=== PATIENT | female | born 1955 | race Caucasian/White ===

== ENCOUNTER 2023-11-30 07:50 | Outpatient (REF) | payer MEDICARE, BC, SELFPAY ==
[2023-11-30] VITALS (15 sets, daily range): BP systolic 62–167; BP diastolic 58–82
[2023-11-30 09:15] LABS: % Basophils 1.2 % (0-2); % Eosinophils 1.9 % (0-6); % Immature Granulocytes 0.5 % (0-0.5); % Lymphocytes 16.7 % (20.5-51.1); % Monocytes 10.7 % (1.7-9.3); Absolute Basophils 0.1 10^3/uL (0-0.2); Absolute Eosinophils 0.1 10^3/uL (0-0.7); Absolute Lymphocytes 0.7 10^3/uL (1.2-3.4); Absolute Monocytes 0.4 10^3/uL (0.1-0.6); Absolute Neutrophils 2.9 10^3/uL (1.4-6.5); Hematocrit 30.7 % (37.0-47.0); Hemoglobin 10.2 g/dL (12.0-16.0); Mean Corp Hgb Conc. 33.2 g/dL (33.0-37.0); Mean Corpuscular Volume 96.2 fL (81.0-99.0); Mean Platelet Volume 9.2 fL (7.4-10.4); Nucleated Red Blood Cells % 0 %; Platelet Count 197 10^3/uL (130-400); Red Blood Cell Count 3.19 10^6/uL (4.20-5.40); Red Cell Dist. Width 11.9 % (11.5-14.5); White Blood Cell Count 4.1 10^3/uL (4.8-10.8)
[2023-11-30 09:27] LABS: INR 1.07; PT 13.9 Sec (11.4-14.6)
[2023-11-30 09:36] LABS: Blood Urea Nitrogen 26 mg/dl (7-17); Calcium 9.7 mg/dl (8.4-10.2); Carbon Dioxide 16 mmol/L (22-30); Chloride 107 mmol/L (98-107); Glucose 81 mg/dl (70-99); Sodium 132 mmol/L (135-145); eGFR 54.39
[2023-11-30 14:25] LABS: Hematocrit 31.5 % (37.0-47.0); Hemoglobin 10.8 g/dL (12.0-16.0)
== END 2023-11-30 16:10 | disposition home or self-care (01) ==
LOC: RADI 07:50
PROVIDERS: Radiology Vascular & Interventional Radiology; ATTENDING PHYSICIAN Student in an Organized Health Care Education/Training Program; FAMILY PHYSICIAN Family Medicine
DX: I12.9 Hypertensive chronic kidney disease with stage 1 through stage 4 chronic kidney disease, or unspecified chronic kidney disease (principal); N18.9 Chronic kidney disease, unspecified; M32.9 Systemic lupus erythematosus, unspecified; D68.8 Other specified coagulation defects; R80.9 Proteinuria, unspecified; I48.91 Unspecified atrial fibrillation; Z79.01 Long term (current) use of anticoagulants
CPT/HCPCS: 36415; 50200; 76942; 80048; 85014; 85018; 85025; 85610; 99152; 99153

== ENCOUNTER 2023-12-29 03:26 | Inpatient (IN) | payer MEDICARE, BC, SELFPAY ==
[2023-12-28 22:57] VITALS: BMI 20.8
[2023-12-28 23:01] VITALS: BP 160/80
[2023-12-28 23:30] VITALS: BP 121/61
[2023-12-28 23:33] LABS: % Eosinophils 1.3 % (0-6); % Immature Granulocytes 0.3 % (0-0.5); % Lymphocytes 18.3 % (20.5-51.1); % Monocytes 16.8 % (1.7-9.3); % Neutrophils 62.3 % (42.2-75.2); Absolute Eosinophils 0.1 10^3/uL (0-0.7); Absolute Lymphocytes 0.7 10^3/uL (1.2-3.4); Absolute Monocytes 0.6 10^3/uL (0.1-0.6); Absolute Neutrophils 2.4 10^3/uL (1.4-6.5); Hematocrit 30.1 % (37.0-47.0); Hemoglobin 10.3 g/dL (12.0-16.0); Mean Corp Hgb Conc. 34.2 g/dL (33.0-37.0); Mean Corpuscular Volume 93.5 fL (81.0-99.0); Mean Platelet Volume 9.1 fL (7.4-10.4); Nucleated Red Blood Cells % 0 %; Platelet Count 193 10^3/uL (130-400); Red Blood Cell Count 3.22 10^6/uL (4.20-5.40); Red Cell Dist. Width 12.4 % (11.5-14.5); White Blood Cell Count 3.8 10^3/uL (4.8-10.8)
[2023-12-29] VITALS (15 sets, daily range): BP systolic 99–164; BP diastolic 48–98; PULSE 62–83; BMI 21.5
--- NOTE | 2023-12-29 00:09 | ED.GENMED ---
History of Present Illness
<SHAYNA Hubbard - Last Filed: 12/29/23 00:34>
General
Chief Complaint: Rectal Bleeding
Source: patient
Exam Limitations: none
Time Seen by Provider: 12/28/23 23:41
Travel History
Have you had any contact with someone who has COVID-19?: No
Do you have any symptoms of coronavirus? Fever > 100 degrees, chills, cough, shortness of breath, sore throat, loss of taste or smell, muscle aches, or headache?: No
History of Present Illness
History of Present Illness:
This is a 68 YO F with a PMH of internal hemorrhoids, colostomy, colostomy reversal 2017 presenting here today for rectal bleeding x 2.5 hours. Pt states she felt the bleed at around 9:40 p.m. She describes the blood as bright red. She states she is
not in any pain. Denies CP, SB, N, V, and diarrhea. Denies abdominal pain. Denies fever or chills. Denies dysuria. Pt states this happened about 1 year ago due to her internal hemorrhoids. She states she currently takes Metamucil. Pt reports she is
currently on Xarelto.
Past History
<SHAYNA Hubbard - Last Filed: 12/29/23 00:34>
Past History
ED Past Medical History: Arrthythmia (Atrial fibrillation), CHF, HTN, Hypercholesterolemia, Hypothyroidism, Other (Systemic lupus, rheumatoid arthritis, pneumonia, pleurisy, renal insufficiency, arthritis, impaired vision, diverticulitis with
sigmoid perforation 2017), Other (A. fib A flutter with history of ablation in January 2016) and Other (RA followed by Rhemuatology Dr. Charli David.)
ED Past Surgical History: Bowel resection (Sigmoid resection with colostomy formation August 2017 for perforated diverticulitis; colostomy reversal April 2018), Gynecological (Tubal ligation) and Orthopedic (L hip replacement 1996 Dr. Mcneal
Nicolas (Had staph infection of the left hip. Had been receiving steroid injections for pain). Right total knee replacement November 2016)
Social History
Tobacco: Non-smoker
Alcohol: Occasional
Drug: None
Personal:
Living: with family
Employment: Retired
Family History
Family History: Other (Noncontributory)
Review of Systems
<SHAYNA Hubbard - Last Filed: 12/29/23 00:34>
Review of Systems
Constitutional: Reports no symptoms
EENT: Reports no symptoms
Respiratory: Reports no symptoms
Cardiac: Reports no symptoms
ABD/GI: Reports bloody stools (Bright red x 2.5 hours (9:40 p.m.) +Hemoccult test )
: Reports no symptoms
Musculoskeletal: Reports no symptoms
Skin: Reports no symptoms
Neurological: Reports no symptoms
Endocrine: Reports no symptoms
Hematologic/Lymphatic: Reports no symptoms
Phy Exam
<SHAYNA Hubbard - Last Filed: 12/29/23 00:34>
Physical Exam
Physical Exam:
Bright red blood per rectum since 9:40 p.m. Normal S1, S2. Breath sounds are equal bilateral. Abdomen is soft and non-tender.
General Physical Exam
General Presentation: well appearing
General age: appears stated age
General Habitus: normal
General Mental: alert
General Hydration: appears well hydrated
Cardiovascular Exam
Cardiovascular Exam: regular rate/rhythm and no murmur
Heart Sounds: normal
Pulmonary Exam
Pulmonary Exam: lungs clear and no respiratory distress
Cough: no cough
Gastrointestinal Exam
Gastrointestinal Exam: normal bowel sounds, non tender and soft
Auscultation of Abdomen: normal
Course
<SHAYNA Hubbard - Last Filed: 12/29/23 00:34>
Orders/Labs/Results
Orders:
Orders
12/28/23 23:26
Type+Screen Urgent
Complete Blood Count/With Diff Urgent
Comprehensive Metabolic Panel Urgent
12/29/23 00:41
Pantoprazole [Protonix IV] 80 mg IV NOW STA
12/29/23 01:52
Admit/Transfer Patient As Directed
Co-Sign Provider:
Level of Care: Inpatient admission
Assign to:: Telemetry
Physician / Group: Amirah Hunt
Diagnosis: Hematochezia
Reason for Telemetry: Chest Pain syndromes
Date to Stop Telemetry: 12/31/23
Time to Stop Telemetry: 11:00
Reason for Hospitalization: Hematochezia
Expected length of stay greater than two midnights?: Yes
ELOS- Estimated Length of Stay in days: 3
I certify the patient meets the requirements for IP care: Yes
12/29/23 01:53
Code Status As Directed
Resuscitation Status: Full Code
12/31/23 11:00
DC Protocol for Telemetry ONCE
Abnormal Lab Results
12/28/23
23:26
WBC 3.8 L 10^3/uL
(4.8-10.8)
RBC 3.22 L 10^6/uL
(4.20-5.40)
Hgb 10.3 L g/dL
(12.0-16.0)
Hct 30.1 L %
(37.0-47.0)
MCH 32.0 H pg
(27.0-31.0)
Absolute Lymphs (auto) 0.7 L 10^3/uL
(1.2-3.4)
Lymphocytes % 18.3 L %
(20.5-51.1)
Monocytes % 16.8 H %
(1.7-9.3)
Sodium 131 L mmol/L
(135-145)
Carbon Dioxide 15 L mmol/L
(22-30)
BUN 33 H mg/dl
(7-17)
Creatinine 1.2 H mg/dL
(0.6-1.0)
Glucose 100 H mg/dl
(70-99)
12/28/23 23:26
12/28/23 23:26
Vital Signs
Initial and Last Documented VS:
Initial Vital Signs
Temp Pulse Resp BP Pulse Ox
97.8 F 73 20 160/80 98
12/28/23 23:01 12/28/23 23:01 12/28/23 23:01 12/28/23 23:01 12/28/23 23:01
Last Documented Vital Signs
Temp Pulse Resp BP Pulse Ox
97.8 F 65 18 132/63 98
12/28/23 23:01 12/29/23 01:30 12/29/23 01:15 12/29/23 01:30 12/29/23 01:30
<Mickey Ford, DO - Last Filed: 12/29/23 02:02>
Orders/Labs/Results
Orders:
Orders
12/28/23 23:26
Type+Screen Urgent
Complete Blood Count/With Diff Urgent
Comprehensive Metabolic Panel Urgent
12/29/23 00:41
Pantoprazole [Protonix IV] 80 mg IV NOW STA
12/29/23 01:52
Admit/Transfer Patient As Directed
Co-Sign Provider:
Level of Care: Inpatient admission
Assign to:: Telemetry
Physician / Group: Amirah Hunt
Diagnosis: Hematochezia
Reason for Telemetry: Chest Pain syndromes
Date to Stop Telemetry: 12/31/23
Time to Stop Telemetry: 11:00
Reason for Hospitalization: Hematochezia
Expected length of stay greater than two midnights?: Yes
ELOS- Estimated Length of Stay in days: 3
I certify the patient meets the requirements for IP care: Yes
12/29/23 01:53
Code Status As Directed
Resuscitation Status: Full Code
12/31/23 11:00
DC Protocol for Telemetry ONCE
Abnormal Lab Results
12/28/23
23:26
WBC 3.8 L 10^3/uL
(4.8-10.8)
RBC 3.22 L 10^6/uL
(4.20-5.40)
Hgb 10.3 L g/dL
(12.0-16.0)
Hct 30.1 L %
(37.0-47.0)
MCH 32.0 H pg
(27.0-31.0)
Absolute Lymphs (auto) 0.7 L 10^3/uL
(1.2-3.4)
Lymphocytes % 18.3 L %
(20.5-51.1)
Monocytes % 16.8 H %
(1.7-9.3)
Sodium 131 L mmol/L
(135-145)
Carbon Dioxide 15 L mmol/L
(22-30)
BUN 33 H mg/dl
(7-17)
Creatinine 1.2 H mg/dL
(0.6-1.0)
Glucose 100 H mg/dl
(70-99)
12/28/23 23:26
12/28/23 23:26
Vital Signs
Initial and Last Documented VS:
Initial Vital Signs
Temp Pulse Resp BP Pulse Ox
97.8 F 73 20 160/80 98
12/28/23 23:01 12/28/23 23:01 12/28/23 23:01 12/28/23 23:01 12/28/23 23:01
Last Documented Vital Signs
Temp Pulse Resp BP Pulse Ox
97.8 F 65 18 132/63 98
12/28/23 23:01 12/29/23 01:30 12/29/23 01:15 12/29/23 01:30 12/29/23 01:30
<SHAYNA Hubbard - Last Filed: 12/29/23 00:34>
MDM/Problems Addressed
Differential Diagnosis Includes:
Internal hemorrhoids, anal fissure, diverticulosis, diverticulitis, lower GI bleed
MDM/Problems Addressed:
Rectal bleed since 9:40 p.m.
<SHAYNA Hubbard - Last Filed: 12/29/23 00:34>
*Critical Care Note
Total Time (30-74mins, 75-104mins- exclusive of procedures): Not Applicable
ED Attending Note
<SHAYNA Hubbard - Last Filed: 12/29/23 00:34>
-
Portions of this chart may have been created with voice recognition software.� Occasional wrong word or��sound alike� substitutions may have occurred due to the inherent limitations of voice recognition software.
<Mickey Ford DO - Last Filed: 12/29/23 02:02>
ED Attending Note
Patient seen and examined by attending physician: Yes
I performed the substantive portion of visit, reviewed & personally made and approve the management plan that is documented in note by myself or COLEEN.: Yes
ED Attending Note:
This a pleasant 68-year-old female that presents with rectal bleeding that occurred approximate 2 hours prior to arrival. She states around 9:30 PM, she had bright red blood per rectum. She reports no pain. She states that this happened 1 year
ago and it was attributed to internal hemorrhoids. Patient does have irregular bowels and takes Metamucil. She is on Xarelto. Patient was seen in conjunction with the PA student. I have reviewed and agree with the history and treatment plan
presented. On my independent physical exam, patient is awake, alert, and oriented x3, minimal acute distress. Heart is regular rate and rhythm. Lungs are clear to auscultation bilaterally without wheezes rales or rhonchi present. Abdomen is soft
nondistended. Normal bowel sounds. Moves all 4 extremities
Discharge Plan
Departure
Patient Disposition: Admit
Date of Disposition: 12/29/23
Time of Disposition: 02:00
Admit to: Med/Surg
Presentation/result/management discussed w/ accepting MD/DO: Hospitalist
Condition: Good
Discharge Problem:
Rectal bleeding
Prescriptions:
No Action
Xarelto 20 MG tablet
20 mg PO QPM
biotin 1 MG capsule
1 mg PO DAILY
folic acid 0.4 MG tablet
0.8 mg PO DAILY
levothyroxine [Levoxyl] 25 MCG tablet
25 mcg PO DAILY
ezetimibe 10 MG tablet
10 mg PO DAILY
potassium gluconate 90 MG tablet
90 mg PO DAILY
cyanocobalamin (vitamin B-12) 1,000 mcg Tablet
1,000 mcg PO DAILY
mycophenolate mofetil 500 MG tablet
500 mg PO BID
metoprolol succinate [Toprol XL] 100 mg Tablet Extended Release 24 Hr
100 mg PO BID
Rx Instructions:
with meals
amlodipine 5 mg tablet
5 mg PO DAILY
Metamucil Fiber Singles 3.4 gram Powder In Packet
1 packet PO DAILY
Prolia 60 mg/mL Syringe
60 mg SC [id number]
Repatha Syringe 140 mg/mL Syringe
140 mg SC Q2W
Referrals:
Carlo Beaver MD [Family Provider] -
Interventions
Interventions:
*Risk Screen - Suicide Last Done: 12/28/23 23:01
*General Assessment Last Done: 12/28/23 23:01
*Neglect/Abuse Screening Last Done: 12/28/23 23:01
ED- Fall Risk Assessment Last Done: 12/28/23 23:01
*ED COVID-19 Vaccine History Last Done: 12/28/23 23:01
TF-Ilggge-Smhlxcedkp Assessment Last Done: 12/29/23 00:25
ED- Cardiac Assessment Last Done: 12/29/23 00:25
ED- Pulmonary Assessment Last Done: 12/29/23 00:25
Discharge Date and Time
Print Language: FRENCH
[2023-12-29 00:13] LABS: ALT (SGPT) 12 U/L (0-35); AST (SGOT) 29 U/L (14-36); Albumin 4.3 g/dl (3.5-5.0); Alkaline Phosphatase 67 U/L (38-126); Blood Urea Nitrogen 33 mg/dl (7-17); Calcium 9.7 mg/dl (8.4-10.2); Carbon Dioxide 15 mmol/L (22-30); Chloride 101 mmol/L (98-107); Glucose 100 mg/dl (70-99); Potassium 4.9 mmol/L (3.5-5.1); Sodium 131 mmol/L (135-145); Total Bilirubin 0.3 mg/dl (0.2-1.3); Total Protein 7.1 g/dl (6.3-8.2)
[2023-12-29] MEDS: PROTONIX IV 80 MG IV (01:05)
--- NOTE | 2023-12-29 01:34 | HPS.HSE ---
Family Physician
-
Family Physician: Carlo Beaver
Chief Complaint
-
rectal bleeding
History of Present Illness
Ms. Mihaela De La Garza is a 68 yo woman with hx essential hypertension, hypothyroidism, atrial fibrillation/aflutter on Xarelto, hx diverticulitis with perforation s/p colostomy with reversal, admission 10/27 for rectal bledding diverticular versus
hemorrhoidal presents to the ER with BRBPR.
Patient states first noticed bleeding this evening. Bleeding occurred on its own without bowel movement, filled toilet. Had 3 episodes at home and another episode here. Denies chest pain, dizziness, lightheadedness. No shortness of breath.
No fevers/chills. No abdominal pain. No nausea/vomiting. No LE swelling.
Last Xarelto dose was at 6PM.
Medical History
Past Medical History
Past Medical History: Reports Other (as per HPIessential hypertension, hypothyroidism, atrial fibrillation/aflutter on Xarelto, hx diverticulitis with perforation s/p colostomy with reversal, admission 10/27 for rectal bledding diverticular versus
hemorrhoidal )
Past Surgical History: Reports Bowel Resection and Other
Social History
Tobacco: Non-smoker
Alcohol: Occasional
Drug: None
Family History
Family History: Not pertinent
Allergies / Home Medications
Allergies reflects when Allergies were last updated in [facility].
Home Medications with original date entered in [facility]
Allergy/Medication List:
Allergies
Allergy/AdvReac Type Severity Reaction Status Date / Time
atorvastatin Allergy Unknown Throat Verified 12/28/23 23:00
Swelling
lisinopril Allergy Unknown Tongue Verified 12/28/23 23:00
Swelling
adhesive tape Allergy Unknown Verified 12/28/23 23:06
Home Medications
biotin 1 mg capsule 1 mg PO DAILY Supplement 04/03/16
rivaroxaban 20 mg tablet (Xarelto) 20 mg PO QPM Blood clot prevention/tx 04/03/16
ezetimibe 10 mg tablet 10 mg PO DAILY High cholesterol 08/09/17
folic acid 400 mcg tablet 0.8 mg PO DAILY Supplement 08/09/17
levothyroxine 25 mcg tablet (Levoxyl) 25 mcg PO DAILY Thyroid 08/09/17
potassium gluconate 550 mg (90 mg) tablet 90 mg PO DAILY Supplement 08/09/17
cyanocobalamin (vitamin B-12) 1,000 mcg tablet 1,000 mcg PO DAILY Supplement 04/16/18
mycophenolate mofetil 500 mg tablet 500 mg PO BID Autoimmune disorder 04/16/18
amlodipine 5 mg tablet 5 mg PO DAILY Blood pressure 10/13/22
metoprolol succinate 100 mg tablet,extended release 24 hr (Toprol XL) 100 mg PO BID Heart disease/condition 10/13/22
denosumab 60 mg/mL subcutaneous syringe (Prolia) 60 mg SC [id number] 11/28/23
evolocumab 140 mg/mL subcutaneous syringe (Repatha Syringe) 140 mg SC Q2W 11/28/23
psyllium husk (aspartame) 3.4 gram oral powder packet (Metamucil Fiber Singles) 1 packet PO DAILY 11/28/23
Review of Systems
-
History Source: Patient
A 12 point ROS was completed and negative except as noted: Yes
Physical Exam
Vital Signs
Vital Signs
Temp Pulse Resp BP Pulse Ox
97.8 F 65 18 132/63 98
12/28/23 23:01 12/29/23 01:30 12/29/23 01:15 12/29/23 01:30 12/29/23 01:30
Physical Exam
General: No Apparent Distress
HEENT: PERRLA
Respiratory: Clear; No Wheezes
Cardiac: S1/S2 and Regular Rhythm
GI: Soft and Non Tender
Musculoskeletal: No Edema
Skin: Warm and Dry; No Rash
Neuro: AO x 3
Psych: Calm
Laboratory Results
-
12/28/23 23:26
12/28/23 23:
Laboratory Results
Total Bilirubin 0.3 mg/dl (0.2-1.3) 12/28/23 23:
AST 29 U/L (14-36) 12/28/23 23:
ALT 12 U/L (0-35) 12/28/23 23:
Alkaline Phosphatase 67 U/L (38-126) 12/28/23 23:
Data Reviewed
-
Diagnostic Radiology: Report Reviewed by me
Lab Data: Labs Reviewed by me
Impression/Plan
-
Ms. Mihaela De La Garza is a 68 yo woman with hx essential hypertension, hypothyroidism, atrial fibrillation/aflutter on Xarelto, hx diverticulitis with perforation s/p colostomy with reversal, admission 10/27 for rectal bledding diverticular versus
hemorrhoidal presents to the ER with BRBPR.
Triage VS: T 97.8, P 73, RR 20, BP 160/80, SpO2 98%
LABS: Na 131, K+ 4.9, Cl 101, CO2 15, Cr 1.2, Glucose 100, WBC 3.8, Hg 10.3, PLT 193
Rectal Bleeding
-suspect diverticular
-admit to observation - change to inpatient if drop in Hg
-hold Xarelto for now
-blood consent signed by ER physician
-trend Hg
-clear liquid diet
-GI consult
CKD
-recent renal biopsy shows severe vascular sclerosis consistent with arterionephrosclerosis, focal segmental and global sclerosing glomerlopathy
Atrial flutter/Atrial fibrillation
-hold VIRTUALIZATION ARCHITECT Xarelto
-VIRTUALIZATION ARCHITECT Metoprolol with hold parameters
Systemic lupus erythematosus
-VIRTUALIZATION ARCHITECT Cellcept
History of diverticulitis with perforation status post colostomy with reversal
Essential hypertension
-VIRTUALIZATION ARCHITECT Metoprolol
-hold Amlodipine for now
Hypothyroidism
-VIRTUALIZATION ARCHITECT Synthroid
HLD
-receives outpatient Repatha
FULL CODE- discussed on admission
DVT PPx SCD
--- NOTE | 2023-12-29 04:08 | PTCARENOTE ---
Pt received from DAIJA mckeon able to make her needs known. Denies pain. Pt oob with 1 person assist as needed. Encouraged to call for help as needed. SCD'S in place. Pt on clear liquids. Pt oriented to room & call [place]field in reach.
[2023-12-29] MEDS: SYNTHROID 25 MCG PO (06:08)
[2023-12-29 07:50] LABS: Hematocrit 28.1 % (37.0-47.0); Hemoglobin 9.2 g/dL (12.0-16.0); Mean Corp Hgb Conc. 32.7 g/dL (33.0-37.0); Mean Corpuscular Hgb 31.8 pg (27.0-31.0); Mean Corpuscular Volume 97.2 fL (81.0-99.0); Mean Platelet Volume 9.4 fL (7.4-10.4); Platelet Count 163 10^3/uL (130-400); Red Blood Cell Count 2.89 10^6/uL (4.20-5.40); Red Cell Dist. Width 12.3 % (11.5-14.5); White Blood Cell Count 2.3 10^3/uL (4.8-10.8)
--- NOTE | 2023-12-29 08:15 | PTCARENOTE ---
Pt has critical WBC of 2.3, MD notified.
[2023-12-29 08:23] LABS: Blood Urea Nitrogen 29 mg/dl (7-17); Calcium 9.5 mg/dl (8.4-10.2); Carbon Dioxide 16 mmol/L (22-30); Chloride 106 mmol/L (98-107); Estimated Creatinine Clearance 46 ml/min; Glucose 79 mg/dl (70-99); Potassium 4.6 mmol/L (3.5-5.1); Sodium 136 mmol/L (135-145)
[2023-12-29] MEDS: CELLCEPT 500 MG PO ×2 (08:54→22:01)
[2023-12-29] MEDS: FOLVITE 0.800000000000000044 MG PO (08:55)
[2023-12-29] MEDS: TOPROL XL 100 MG PO ×2 (08:55→17:06)
--- NOTE | 2023-12-29 09:03 | CON.GI ---
Addendum entered and electronically signed by Nancie Navas Do, MD 12/29/23 17:24:
I saw and examined the patient.
The SOCIAL SCIENCES CHAIR's note was reviewed and I agree with the note.
Comment: Mihaela is a 68yo W with h/o lupus chronically immunosuppressed, on xarelto for afib, and diverticulitis with perf s/p sigmoid resection with colostomy reversal 2017 who was admitted for painless hematochezia. After urinating last night large
clots came out. She has no abd pain. No prior GIB. Vitals stable exam NTTP, NABS. surgical scar well healed. Labs reviewed
Impression
- Painless hematochezia
Suspect diverticular. Less likely hemorrhoidal
- Chronic AC (xarelto 12/27 PM)
- Afib
- H/o diverticular perf s/p sigmoidectomy and colostomy reversal
- HTN
- Lupus
- Chronic immunosuppression
Recommendations
- Serial H/H
- Tolerating diet currently, adv to low residue
- Monitor stool output, no further bleeding thus far
- If above is stable consider resuming AC tomorrow and observe
- Consider outpatient colonoscopy if H/H stable and no further output seen
- If bleeding recurs then inpatient Cscope
Pt is agreeable to above plan of care. Will follow with you
Original Note:
Consultation
-
Date/Time Consultation Requested: 12/29/23 5640
Date/Time Consultation Performed: 12/29/23 8810
Requesting Provider: Dr. Hunt
Performing Provider: Dr. Faye / Kami Christiansen PA-C
Reason for Consultation: rectal bleeding
Medical History
Chief Complaint / HPI
Chief Complaint: rectal bleeding
History of Present Illness:
This is a 68 year old female with a past medical history of atrial fibrillation (on Xarelto), HTN, hypothyroidism, lupus (on CellCept), prior h/o diverticulitis with perforation with sigmoid resection/colostomy with reversal (2017) who presents to
the hospital with painless rectal bleeding. She states this started yesterday evening when she went to urinate and saw bright red blood. This occurred 3 times at home and she decided to come to the ER. She had a similar episode in October 2022,
admitted for rectal bleeding that was thought to be diverticular vs hemorrhoidal in nature. She had no recurrence of bleeding until yesterday. No abdominal pain, diarrhea, constipation, nausea, vomiting, fevers or chills. She states bowel movements
are regular, she takes Metamucil daily but does admit to occasional straining. Occasional NSAID use. ER labs showed Hgb 10.3 (which is around her baseline) with normocytic indices, platelets 193, WBC 3.8. She has remained hemodynamically stable. Her
last colonoscopy was in [address] Macias, showed diverticulosis. She has no history of colon polyps and denies a family history of colon cancer or IBD. Last dose of Xarelto was 12/28/23 in the evening.
Past Medical History
Past Medical History: Arrhythmias (Afib on Xarelto), HTN, Hypercholesterolemia, Hypothyroidism and Other (lupus, diverticulitis with perforation with sigmoid resection/colostomy with reversal (2018) )
Past Surgical History: Bowel Resection (Diverticulitis with perforation, colostomy with reversal in 2018)
Social History
Tobacco: Non-Smoker
Alcohol: Occasional
Drug: None
Family History
Family History: Reviewed & Not Pertinent
Allergies / Home Medications
Allergy/AdvReac Type Severity Reaction Status Date / Time
atorvastatin Allergy Unknown Throat Verified 12/28/23 23:00
Swelling
lisinopril Allergy Unknown Tongue Verified 12/28/23 23:00
Swelling
adhesive tape Allergy Unknown Verified 12/28/23 23:06
�Medication �Instructions �Recorded
biotin 1 mg capsule 1 mg PO DAILY Supplement 04/03/16
rivaroxaban 20 mg tablet (Xarelto) 20 mg PO QPM Blood clot 04/03/16
prevention/tx
ezetimibe 10 mg tablet 10 mg PO DAILY High cholesterol 08/09/17
folic acid 400 mcg tablet 0.8 mg PO DAILY Supplement 08/09/17
levothyroxine 25 mcg tablet 25 mcg PO DAILY Thyroid 08/09/17
(Levoxyl)
potassium gluconate 550 mg (90 mg) 90 mg PO DAILY Supplement 08/09/17
tablet
cyanocobalamin (vitamin B-12) 1,000 mcg PO DAILY Supplement 04/16/18
1,000 mcg tablet
mycophenolate mofetil 500 mg tablet 500 mg PO BID Autoimmune disorder 04/16/18
amlodipine 5 mg tablet 5 mg PO DAILY Blood pressure 10/13/22
metoprolol succinate 100 mg 100 mg PO BID Heart 10/13/22
tablet,extended release 24 hr disease/condition
(Toprol XL)
denosumab 60 mg/mL subcutaneous 60 mg SC [id number] 11/28/23
syringe (Prolia)
evolocumab 140 mg/mL subcutaneous 140 mg SC Q2W 11/28/23
syringe (Repatha Syringe)
psyllium husk (aspartame) 3.4 gram 1 packet PO DAILY 11/28/23
oral powder packet (Metamucil
Fiber Singles)
Review of Systems
-
History Source: Patient
All other systems: A 12 pt ROS was Negative except as stated above in HPI
Vital Signs
Temp Pulse Resp BP Pulse Ox
98.2 F 62 18 118/60 98
12/29/23 08:41 12/29/23 08:55 12/29/23 08:41 12/29/23 08:55 12/29/23 08:41
Physical Exam
Exam
General: Well Developed, Well Nourished and No Apparent Distress
Respiratory: Clear
Cardiac: Regular Rhythm
GI: Soft, Non Tender, Non Distended and Normal Bowel Sounds
Rectal: Other (+dried blood in the perirectal area, no external hemorrhoids or fissures; no palpable lesions or tenderness on internal digital rectal exam; no stool in rectal vault)
Skin: Warm and Dry
Neuro: AO x 3
Psych: Calm
Results
WBC 2.3 10^3/uL (4.8-10.8) L* 12/29/23 07:07
Hgb 9.2 g/dL (12.0-16.0) L 12/29/23 07:07
Hct 28.1 % (37.0-47.0) L 12/29/23 07:07
MCV 97.2 fL (81.0-99.0) 12/29/23 07:07
Plt Count 163 10^3/uL (130-400) 12/29/23 07:07
Absolute Neuts (auto) 2.4 10^3/uL (1.4-6.5) 12/28/23 23:26
Sodium 136 mmol/L (135-145) 12/29/23 07:07
Potassium 4.6 mmol/L (3.5-5.1) 12/29/23 07:07
Chloride 106 mmol/L (98-107) 12/29/23 07:07
Carbon Dioxide 16 mmol/L (22-30) L 12/29/23 07:07
BUN 29 mg/dl (7-17) H 12/29/23 07:07
Creatinine 1.2 mg/dL (0.6-1.0) H 12/29/23 07:07
Calcium 9.5 mg/dl (8.4-10.2) 12/29/23 07:07
Total Bilirubin 0.3 mg/dl (0.2-1.3) 12/28/23 23:26
AST 29 U/L (14-36) 12/28/23 23:26
ALT 12 U/L (0-35) 12/28/23 23:26
Alkaline Phosphatase 67 U/L (38-126) 12/28/23 23:26
Diagnostic Image Results:
CT Abdomen/pelvis, 10/13/2022: *from prior admission for painless rectal bleeding
Prior sigmoid resection. Majority of large bowel not opacified with oral contrast. No intestinal obstruction or gross focal pericolonic inflammatory changes. Study limited by technique for evaluation of potential site of active colonic bleeding.
Cholelithiasis.
Small hiatal hernia.
Left hip arthroplasty with beam hardening artifact somewhat limiting evaluation of the soft tissues of the true pelvis.
Prior GI Procedures:
EGD:
Colonoscopy: 04/2018, Dr. Macias: - Diverticulosis in the entire examined colon.
- The examination was otherwise normal.
Assessment / Plan
-
68 year old female with a past medical history of atrial fibrillation (on Xarelto), HTN, hypothyroidism, lupus (on CellCept), prior h/o diverticulitis with perforation with sigmoid resection/colostomy with reversal (2017) who presents to the
hospital with painless rectal bleeding. She states this started yesterday evening when she went to urinate and saw bright red blood. This occurred 3 times at home and she decided to come to the ER. She had a similar episode in October 2022, admitted
for rectal bleeding that was thought to be diverticular vs hemorrhoidal in nature. She had no recurrence of bleeding until yesterday. No abdominal pain, diarrhea, constipation, nausea, vomiting, fevers or chills. She states bowel movements are
regular, she takes Metamucil daily but does admit to occasional straining. Occasional NSAID use. ER labs showed Hgb 10.3 (which is around her baseline) with normocytic indices, platelets 193, WBC 3.8. She has remained hemodynamically stable. Her
last colonoscopy was in [address] Macias, showed diverticulosis. She has no history of colon polyps and denies a family history of colon cancer or IBD. Last dose of Xarelto was 12/28/23 in the evening.
IMPRESSION / PLAN:
Rectal Bleeding, painless, on Eliquis - diverticular bleed vs hemorrhoids
-Hgb 10.3, which is around her baseline
-continue to trend Hgb
-transfuse if Hgb drops below 7
-monitor bleeding -- CTA imaging if she re-bleeds
-clear liquids
-hold Xarelto
-consider flexible sigmoidoscopy vs colonoscopy -- inpatient vs outpatient -- to discuss further with Dr. Faye
Other medical problems managed as per hospitalist. We will follow.
-
-
Thank you for consultation and allowing me to participate in the patient's care. Please call the automobile service station manager GI physician during the after hours with any questions or concerns.
--- NOTE | 2023-12-29 13:47 | W.PN.HOSP.TC ---
Today's Communication/Plan
-
Await H and H
Hold Xarelto
Assessment / Plan
Assessment / Plan
68-year-old female presented to the ER with rectal bleeding. No more bleeding since admission. No abdominal pain, no dizziness, no hematemesis no melena no diarrhea. She took Xarelto on 520 3:24 PM prior to bleeding started.
On examination awake alert oriented
Cardiovascular system S1-S2 appreciated
Chest clear to auscultation
Abdomen soft and nontender.
No pedal edema
Nail changes from mycophenolate # hypertension-continue amlodipine, metoprolol
# Rectal bleeding-likely diverticular versus hemorrhoidal
Exacerbated by Xarelto
Patient has a history of sigmoid resection, colostomy and reversal
Last colonoscopy was in 2018 after colostomy reversal-showed diverticulosis in the entire examined colon
Hemoglobin is hykypl-dmskjo-mx repeat
Hold Xarelto
GI consultation awaited
# Hyponatremia-resolved
# Atrial hiqijaeirjcs-imlgbbuzzb-kite Xarelto continue metoprolol XL
# Hyperlipidemia-continue Repatha and Zetia
# Hypertension-continue amlodipine, metoprolol
# Hypothyroidism-continue Synthroid
# Rheumatoid arthritis/lupus-on mycophenolate
# Leukopenia likely secondary to CellCept
# Anemia likely secondary to acute GI blood loss and also chronic anemia secondary to lupus and CellCept
Check iron studies
# Kidney disease-CKD likely stage
Renal biopsy shows severe vascular sclerosis consistent with arterionephrosclerosis, focal segmental and global sclerosing glomerlopathy
# Metabolic acidosis-likely secondary to CKD bicarb
# Cholelithiasis
# DVT prophylaxis-SCDs
# Full code
D/W Family at bed side
Anticipated Discharge: Within 24 hours
Subjective/Interval History
-
Date of Service: December 29, 2023
Objective Data
-
Labs:
Laboratory Results
12/29/23 12/29/23 12/29/23
07:07 14:00 22:00
WBC 2.3 L*
Hgb 9.2 L Pending Pending
Hct 28.1 L Pending Pending
Plt Count 163
Sodium 136
Potassium 4.6
Chloride 106
Carbon Dioxide 16 L
BUN 29 H
Creatinine 1.2 H
Glucose 79
Calcium 9.5
Vital Signs:
Vital Signs
Temp Pulse Resp BP Pulse Ox
97.6 F 60 18 150/70 100
12/29/23 12:01 12/29/23 12:01 12/29/23 12:01 12/29/23 12:01 12/29/23 12:01
[2023-12-29 14:03] LABS: Hemoglobin 10.2 g/dL (12.0-16.0)
[2023-12-29] MEDS: NORVASC 5 MG PO (14:48)
[2023-12-29] MEDS: SODIUM BICARBONATE 650 MG PO ×2 (14:49→22:02)
[2023-12-29 22:12] LABS: Hematocrit 28.2 % (37.0-47.0)
[2023-12-30 03:32] VITALS: BP 144/68
[2023-12-30] MEDS: SYNTHROID 25 MCG PO (05:38)
[2023-12-30 06:00] VITALS: BMI 20.6
[2023-12-30 06:56] LABS: % Basophils 1.1 % (0-2); % Eosinophils 2.6 % (0-6); % Immature Granulocytes 0.4 % (0-0.5); % Lymphocytes 20.8 % (20.5-51.1); % Monocytes 12.5 % (1.7-9.3); % Neutrophils 62.6 % (42.2-75.2); Absolute Eosinophils 0.1 10^3/uL (0-0.7); Absolute Lymphocytes 0.6 10^3/uL (1.2-3.4); Absolute Monocytes 0.3 10^3/uL (0.1-0.6); Absolute Neutrophils 1.7 10^3/uL (1.4-6.5); Hematocrit 31.2 % (37.0-47.0); Hemoglobin 10.4 g/dL (12.0-16.0); Mean Corp Hgb Conc. 33.3 g/dL (33.0-37.0); Mean Corpuscular Hgb 32.1 pg (27.0-31.0); Mean Corpuscular Volume 96.3 fL (81.0-99.0); Mean Platelet Volume 9.5 fL (7.4-10.4); Nucleated Red Blood Cells % 0 %; Platelet Count 182 10^3/uL (130-400); Red Blood Cell Count 3.24 10^6/uL (4.20-5.40); Red Cell Dist. Width 12.3 % (11.5-14.5); White Blood Cell Count 2.7 10^3/uL (4.8-10.8)
[2023-12-30 07:03] VITALS: BP 147/71
[2023-12-30 07:52] LABS: Blood Urea Nitrogen 23 mg/dl (7-17); Calcium 9.6 mg/dl (8.4-10.2); Carbon Dioxide 20 mmol/L (22-30); Chloride 103 mmol/L (98-107); Estimated Creatinine Clearance 53 ml/min; Glucose 83 mg/dl (70-99); Potassium 4.8 mmol/L (3.5-5.1); Sodium 135 mmol/L (135-145); eGFR > 60.00
[2023-12-30] MEDS: NORVASC 5 MG PO (08:54)
[2023-12-30] MEDS: FOLVITE 0.800000000000000044 MG PO (08:54)
[2023-12-30] MEDS: CELLCEPT 500 MG PO (08:54)
[2023-12-30] MEDS: SODIUM BICARBONATE 650 MG PO (08:55)
[2023-12-30] MEDS: ZETIA 10 MG PO (08:55)
[2023-12-30] MEDS: FLUSH (NSS) 2 FLUSH IV (08:55)
[2023-12-30] MEDS: TOPROL XL 100 MG PO (08:57)
--- NOTE | 2023-12-30 09:30 | W.PN.GI.CBS2 ---
Addendum entered and electronically signed by Nancie Navas Do, MD 12/30/23 10:50:
I saw and examined the patient.
The LOGISTICS ENGINEER's note was reviewed and I agree with the note.
Comment: She feels well. No abd pain, nausea/vomiting. Exam VSS NTTP, NABS. Labs reviewed Hbg stable at 10
Impression
- Adv to low residue diet
- If tolerates above to resume xarelto today
- Use miralax half cap daily to prevent constipation
- Ok from [facility] for hosp d/c today if tolerates diet. Message sent to arrange OP colonscopy with me. Plefortunatovu script sent and my office will contact her
Above d/w hospitalist. Will follow with you.
Original Note:
Today's Communication / Plan
-
- Serial H/H today 10.4
no bleeding overnight
advance to low residue diet now
consider resuming Xarelto today as no bleeding since night
sent message to office to arrange OP colonoscopy with 2 day Xarelto hold
discussed to return to ER for any recurrent bleeding or problems after discharge
message sent to office to arrange
Assessment / Plan
-
68 year old female with a past medical history of atrial fibrillation (on Xarelto), HTN, hypothyroidism, lupus (on CellCept), prior h/o diverticulitis with perforation with sigmoid resection/colostomy with reversal (2017) who presents to the ""hospital with painless rectal bleeding. She states this started evening prior to admission when she went to urinate and saw bright red blood. This occurred 3 times at home and she decided to come to the ER. She had a similar episode in October 2022,
admitted for rectal bleeding that was thought to be diverticular vs hemorrhoidal in nature. She had no recurrence of bleeding until yesterday. No abdominal pain, diarrhea, constipation, nausea, vomiting, fevers or chills. She states bowel movements
are regular, she takes Metamucil daily but does admit to occasional straining. Occasional NSAID use. ER labs showed Hgb 10.3 (which is around her baseline) with normocytic indices, platelets 193, WBC 3.8. She has remained hemodynamically stable. Her
last colonoscopy was in [address] Macias, showed diverticulosis. She has no history of colon polyps and denies a family history of colon cancer or IBD. Last dose of Xarelto was 12/28/23 in the evening.
Impression
- Painless hematochezia
Suspect diverticular. Less likely hemorrhoidal
- Chronic AC (xarelto 12/27 PM)
- Afib
- H/o diverticular perf s/p sigmoidectomy and colostomy reversal
- HTN
- Lupus
- Chronic immunosuppression
Recommendations
- Serial H/H today 10.4
no bleeding overnight
advance to low residue diet now
consider resuming Xarelto today as no bleeding since night
sent message to office to arrange OP colonoscopy with 2 day Xarelto hold
discussed to return to ER for any recurrent bleeding or problems after discharge
message sent to office to arrange
Subjective
Subjective
Date of Service: December 30, 2023
12/27 bloody stools, on clear diet
Objective
Data Reviewed
Laboratory Data:
Laboratory Results
12/30/23 05:40
12/30/23 05:40
Laboratory Results
Total Bilirubin 0.3 mg/dl (0.2-1.3) 12/28/23 23:26
AST 29 U/L (14-36) 12/28/23 23:26
ALT 12 U/L (0-35) 12/28/23 23:26
Alkaline Phosphatase 67 U/L (38-126) 12/28/23 23:26
Vital Signs and I&O:
Vital Signs
Temp Pulse Resp BP Pulse Ox
97.9 F 65 16 143/72 100
12/30/23 07:03 12/30/23 08:57 12/30/23 07:03 12/30/23 08:57 12/30/23 07:03
Physical Exam
Physical Exam
HEENT: Anicteric and Moist mucous membranes
Cardiology: Normal Sinus Rhythm
Pulmonary: Clear
GI: Soft, Non Distended and Non Tender
Extremities: No Edema
Neuro: Non Focal
[2023-12-30 11:55] VITALS: BP 153/72
--- NOTE | 2023-12-30 13:00 | PTCARENOTE ---
Pt tolerated low residue diet without any difficulty. No abdominal pain, no N/V, will continue to monitor.
--- NOTE | 2023-12-30 13:35 | CM ---
Patient seen at bedside. Patient states that she is for discharge home today. Patient stated that she lives with her in a split level home. Patient has no DME, but occasionally will use a walker/cane on unsteady ground. Patient uses the [facility]
in [place]/ PCP is Dr. Valenzuela. Patient completed IMM and form placed on chart. CM will continue to follow for discharge planning needs.
Plan; home with no needs.
--- NOTE | 2023-12-30 15:00 | W.PN.HOSP.TC ---
Today's Communication/Plan
-
Discharge
Assessment / Plan
Assessment / Plan
68-year-old female presented to the ER with rectal bleeding. No more bleeding since admission. No abdominal pain, no dizziness, no hematemesis no melena no diarrhea. She took Xarelto on 520 3:24 PM prior to bleeding started.
On examination awake alert oriented
Cardiovascular system S1-S2 appreciated
Chest clear to auscultation
Abdomen soft and nontender.
No pedal edema
Nail changes from mycophenolate # hypertension-continue amlodipine, metoprolol
# Rectal bleeding-likely diverticular versus hemorrhoidal
Exacerbated by Xarelto
Patient has a history of sigmoid resection, colostomy and reversal
Last colonoscopy was in 2018 after colostomy reversal-showed diverticulosis in the entire examined colon
Hemoglobin is qqfuid-iocaur-xw repeat
Restart Xarelto
Pt tolerated diet
GI consultation awaited
# Hyponatremia-resolved
# Atrial ibenazatldbo-rpwlybqath-Nxefrlr Xarelto continue metoprolol XL
# Hyperlipidemia-continue Repatha and Zetia
# Hypertension-continue amlodipine, metoprolol
# Hypothyroidism-continue Synthroid
# Rheumatoid arthritis/lupus-on mycophenolate
# Leukopenia likely secondary to CellCept- better
# Anemia likely secondary to acute GI blood loss and also chronic anemia secondary to lupus and CellCept
OP Follow up
# Kidney disease-CKD likely stage
Renal biopsy shows severe vascular sclerosis consistent with arterionephrosclerosis, focal segmental and global sclerosing glomerulopathy
# Metabolic acidosis-likely secondary to CKD bicarb- better now . OK to stop and follow up with PCP. Creat better
# Cholelithiasis
# DVT prophylaxis-SCDs
# Full code
D/W GI
Anticipated Discharge: Today
Subjective/Interval History
-
Date of Service: December 30, 2023
Objective Data
-
Labs:
Laboratory Results
12/30/23
05:40
WBC 2.7 L
Hgb 10.4 L
Hct 31.2 L
Plt Count 182
Sodium 135
Potassium 4.8
Chloride 103
Carbon Dioxide 20 L
BUN 23 H
Creatinine 1.0
Glucose 83
Calcium 9.6
Vital Signs:
Vital Signs
Temp Pulse Resp BP Pulse Ox
97.8 F 63 18 153/72 99
12/30/23 11:55 12/30/23 11:55 12/30/23 11:55 12/30/23 11:55 12/30/23 11:55
--- NOTE | 2023-12-30 15:04 | W.DS.TRANS ---
Addendum entered and electronically signed by Ajay Vizcarra MD 12/30/23 15:44:
Dictation- [id number]
Original Note:
DC Summary - Clothing Worker
-
Discharge Instructions:
Sleep Apnea Risk Low
Discharge Diagnosis/Procedures Rectal bleeding, Atrial fibrillation, High
cholesterol, Hypertension, Hypothyroidism,
Rheumatoid arthritis, Anemia, kidney disease,
Metabolic acidosis
Diet 2 Gram Sodium
Activity As tolerated
Driving Restrictions As prior to admission
Instructions:
Stand-Alone Forms:
Changes to Home Medications: No
Discharge Medications:
DC Medications w/original date entered in [employer]
biotin 1 mg capsule 1 mg PO DAILY Supplement 04/03/16
rivaroxaban 20 mg tablet (Xarelto) 20 mg PO QPM Blood clot prevention/tx 04/03/16
ezetimibe 10 mg tablet 10 mg PO DAILY High cholesterol 08/09/17
folic acid 400 mcg tablet 0.8 mg PO DAILY Supplement 08/09/17
levothyroxine 25 mcg tablet (Levoxyl) 25 mcg PO DAILY Thyroid 08/09/17
potassium gluconate 550 mg (90 mg) tablet 90 mg PO DAILY Supplement 08/09/17
cyanocobalamin (vitamin B-12) 1,000 mcg tablet 1,000 mcg PO DAILY Supplement 04/16/18
mycophenolate mofetil 500 mg tablet 500 mg PO BID Autoimmune disorder 04/16/18
amlodipine 5 mg tablet 5 mg PO DAILY Blood pressure 10/13/22
metoprolol succinate 100 mg tablet,extended release 24 hr (Toprol XL) 100 mg PO BID Heart disease/condition 10/13/22
denosumab 60 mg/mL subcutaneous syringe (Prolia) 60 mg SC [id number] bone #0 mL 12/30/23
evolocumab 140 mg/mL subcutaneous syringe (Repatha Syringe) 140 mg SC Q2W High cholesterol #0 mL 12/30/23
psyllium husk (aspartame) 3.4 gram oral powder packet (Metamucil Fiber Singles) 1 packet PO DAILY Gastrointestinal issue #0 ea 12/30/23
Home Medication Changes
Pending Results: No
[2023-12-30 15:56] VITALS: BP 141/85
== END 2023-12-30 16:26 | disposition home or self-care (01) | DRG 813 ==
LOC: 4 EAST ACU 03:26
PROVIDERS: ADMITTING PHYSICIAN Student in an Organized Health Care Education/Training Program; ATTENDING PHYSICIAN Hospitalist; EMERGENCY PHYSICIAN Student in an Organized Health Care Education/Training Program; FAMILY PHYSICIAN Family Medicine; OTHER PHYSICIAN Internal Medicine Gastroenterology
DX: D68.32 Hemorrhagic disorder due to extrinsic circulating anticoagulants (principal); D84.821 Immunodeficiency due to drugs; I13.0 Hypertensive heart and chronic kidney disease with heart failure and stage 1 through stage 4 chronic kidney disease, or unspecified chronic kidney disease; I48.92 Unspecified atrial flutter; E87.1 Hypo-osmolality and hyponatremia; E87.20 Acidosis, unspecified; N18.9 Chronic kidney disease, unspecified; I48.91 Unspecified atrial fibrillation; Z79.01 Long term (current) use of anticoagulants; M32.9 Systemic lupus erythematosus, unspecified; E03.9 Hypothyroidism, unspecified; Z79.624 Long term (current) use of inhibitors of nucleotide synthesis; M06.9 Rheumatoid arthritis, unspecified; K80.20 Calculus of gallbladder without cholecystitis without obstruction
CPT/HCPCS: 80048; 80053; 85014; 85018; 85025; 85027; 86850; 86900; 86901; 96374; 99285

== ENCOUNTER 2024-01-06 15:16 | Inpatient (IN) | payer MEDICARE, BC, SELFPAY ==
[2024-01-06] VITALS (29 sets, daily range): BP systolic 82–155; BP diastolic 47–82; BMI 22.4
[2024-01-06 10:59] LABS: % Basophils 0.8 % (0-2); % Eosinophils 0.8 % (0-6); % Immature Granulocytes 0.4 % (0-0.5); % Lymphocytes 11.4 % (20.5-51.1); % Monocytes 5.8 % (1.7-9.3); % Neutrophils 80.8 % (42.2-75.2); Absolute Lymphocytes 0.6 10^3/uL (1.2-3.4); Absolute Monocytes 0.3 10^3/uL (0.1-0.6); Hemoglobin 8.9 g/dL (12.0-16.0); Mean Corp Hgb Conc. 34.2 g/dL (33.0-37.0); Mean Corpuscular Hgb 32.2 pg (27.0-31.0); Mean Corpuscular Volume 94.2 fL (81.0-99.0); Mean Platelet Volume 9.4 fL (7.4-10.4); Nucleated Red Blood Cells % 0 %; Platelet Count 227 10^3/uL (130-400); Red Blood Cell Count 2.76 10^6/uL (4.20-5.40); Red Cell Dist. Width 12.1 % (11.5-14.5)
[2024-01-06 11:01] LABS: ALT (SGPT) < 10 U/L (0-35); AST (SGOT) 23 U/L (14-36); Albumin 4.1 g/dl (3.5-5.0); Alkaline Phosphatase 70 U/L (38-126); Blood Urea Nitrogen 33 mg/dl (7-17); Calcium 9.3 mg/dl (8.4-10.2); Carbon Dioxide 20 mmol/L (22-30); Chloride 103 mmol/L (98-107); Estimated Creatinine Clearance 46 ml/min; Glucose 130 mg/dl (70-99); Lipase 332 U/L (23-300); Potassium 4.9 mmol/L (3.5-5.1); Sodium 133 mmol/L (135-145); Total Bilirubin 0.3 mg/dl (0.2-1.3); Total Protein 6.7 g/dl (6.3-8.2)
--- NOTE | 2024-01-06 11:27 | ED.GENMED ---
History of Present Illness
<Lan Harrison PA-C - Last Filed: 01/06/24 16:31>
General
Chief Complaint: Abdominal Symptoms
Time Seen by Provider: 01/06/24 11:10
Travel History
Have you had any contact with someone who has COVID-19?: No
Do you have any symptoms of coronavirus? Fever > 100 degrees, chills, cough, shortness of breath, sore throat, loss of taste or smell, muscle aches, or headache?: No
History of Present Illness
History of Present Illness:
68-year-old female with history of A-fib on Xarelto, hypertension, hyperlipidemia, and perforated diverticulum status post sigmoid colectomy with subsequent colostomy takedown presents to the emergency department for evaluation of sudden onset
right-sided abdominal pain that woke her from sleep at 4 AM today. Patient was admitted to this hospital just over 1 week ago due to rectal bleeding, at that time her anticoagulants were held and her bleeding stopped. She notes severe/sharp
right-sided abdominal pain that radiates from the upper lower portion, associated with nausea and vomiting. She had a syncopal event while in the waiting room secondary to severe bout of pain. Denies any hematuria or difficulty urinating.
Past History
<Lan Harrison PA-C - Last Filed: 01/06/24 16:31>
Past History
ED Past Medical History: Arrthythmia (Atrial fibrillation), CHF, HTN, Hypercholesterolemia, Hypothyroidism, Other (Systemic lupus, rheumatoid arthritis, pneumonia, pleurisy, renal insufficiency, arthritis, impaired vision, diverticulitis with
sigmoid perforation 2017), Other (A. fib A flutter with history of ablation in January 2016) and Other (RA followed by Rhemuatology Dr. Charli David.)
ED Past Surgical History: Bowel resection (Sigmoid resection with colostomy formation August 2017 for perforated diverticulitis; colostomy reversal April 2018), Gynecological (Tubal ligation) and Orthopedic (L hip replacement 1996 Dr. Mcneal
Nicolas (Had staph infection of the left hip. Had been receiving steroid injections for pain). Right total knee replacement November 2016)
Social History
Tobacco: Non-smoker
Alcohol: Occasional
Drug: None
Personal:
Living: with family
Employment: Retired
Family History
Family History: Other (Noncontributory)
Review of Systems
<Lan Harrison PA-C - Last Filed: 01/06/24 16:31>
Review of Systems
Allergies reviewed?: Yes
All Other Systems: ROS reviewed and negative except as documented in HPI and ROS
Phy Exam
<Lan Harrison PA-C - Last Filed: 01/06/24 16:31>
Physical Exam
Physical Exam:
GEN: Well appearing, NAD, WDWN
Eyes: PERRLA, EOMs intact, no scleral icterus
HENT: NCAT, oral mucosa moist
Lungs: CTAB, no wheezes, rales, rhonchi, normal chest wall excursion
Cardiac: RRR, no M/R/G, no peripheral edema. Radial pulses 2+ bilat
Abdomen: Soft, no rigidity, marked tenderness to the epigastrium, right upper quadrant, and right lower quadrant
Neuro: AO x 3
MSK: No gross deformity or ecchymosis. No edema. No digital clubbing
Skin: No rashes, petechiae. Normal color, no pallor or jaundice.
Psych: Calm, cooperative, proper hygiene
Course
<Lan Harrison PA-C - Last Filed: 01/06/24 16:31>
Orders/Labs/Results
Orders:
Orders
01/06/24 Lunch
NPO
Allow oral meds: Yes
Allow clear liquids: Sips of Clears
NPO with Ice Chips: Yes
01/06/24 10:31
Complete Blood Count/With Diff Urgent
01/06/24 10:32
Comprehensive Metabolic Panel Urgent
Lipase Urgent
01/06/24 10:48
EKG [Electrocardiogram (*1)] Urgent
Reason for Study: Syncope
EKG- Treatment ONCE
01/06/24 11:24
CT Abd/Pel (IV only)-DH only Urgent
Comment:
Reason For Exam: R abd pain, syncope
01/06/24 11:28
HYDROmorphone [Dilaudid] 0.5 mg IV NOW STA
Ondansetron Injectable [Zofran] 4 mg IV NOW STA
01/06/24 12:26
IV Insert/Care/Rem.- Treatment PRN
01/06/24 13:07
Type+Screen Urgent
Hemoglobin Urgent
01/06/24 13:16
Acetaminophen 1000MG/100Ml [Ofirmev] 1,000 mg in 100 ml IV ONCE
Acetaminophen IV Indication:: ED Narcotic Naive Pt-ONCE
01/06/24 13:26
Blood Bank Products [* Blood Bank Products] Stat
Blood Bank Products: *Packed RBC Leuko(PRBC's)
Quantity: 2
Transfuse Today: Yes
Reason: Bleeding
Patient will require pre-treatment for transfusion:: Yes
Diphenhydramine [Benadryl] 12.5 mg IV NOW STA
01/06/24 13:32
Emergent Blood Release Urgent
Blood Bank Products: *Packed RBC Leuko(PRBC's)
Quantity: 2
Reason: Bleeding
A Blood Permit is Required for all Blood.
FOR LAB PICKUP:
Take order sheet to Blood Bank to pick pulling machine operator blood products in validated cooler
Immediately return to patient care area.
Blood products released by
Blood Products picked up by
Sent to
Date and Time
01/06/24 13:38
Prothrombin Complex(Pcc),Human [Kcentra] 1,602 unit Empty Viaflex Container 100 ml [Viaflex Empty Container] 60 ml IV NOW
Does patient have a dx of serious acute active bleeding?: Yes
Does patient have prior history of HIT?: No
01/06/24 14:21
0.9% Sodium Chloride 1000 ml [Nss] 1,000 ml IV BOLUS
01/06/24 14:38
Admit/Transfer Patient As Directed
Co-Sign Provider:
Level of Care: Inpatient admission
Assign to:: IMU- Intermediate Care
Physician / Group: Priyanka/Hospitalist
Diagnosis: acute blood loss anemia, lrge rectus sheath abdominal hematoma active bleed
Reason for Hospitalization: acute blood loss anemia, lrge rectus sheath abdominal hematoma active bleed,
hypotension
Expected length of stay greater than two midnights?: Yes
ELOS- Estimated Length of Stay in days: 4
I certify the patient meets the requirements for IP care: Yes
01/06/24 14:43
Code Status As Directed
Resuscitation Status: Full Code
01/06/24 15:31
PT/INR [Prothrombin Time] Stat
01/06/24 16:34
0.9% Sodium Chloride 1000 ml [Nss] 1,000 ml IV 75 mls/hr
Acetaminophen [Tylenol] 650 mg PO Q4HPRN PRN
Bisacodyl [Dulcolax] 10 mg RECTAL [id number] PRN
Docusate W/Senna [Senokot-S] 1 tablet PO BIDPRN PRN
Morphine Sulfate 2 mg IV Q4HPRN PRN
Ondansetron Injectable [Zofran] 4 mg IV Q6HPRN PRN
Oxycodone [Roxicodone] 5 mg PO Q4HPRN PRN
Polyethylene Glycol Powder [Miralax] 17 grams PO DAILYPRN PRN
01/06/24 16:34
SURGICAL CONSULT Routine
Consulting Provider: Charanjit Don
Was physician already notified: Yes
Reason for consult: acute abdominal wall active bleeding hematoma
Activity As Directed
Activity Level: Ambulate
Intake/ Output As Directed
Frequency: Per unit guidelines
Pneumatic Compression Sleeves As Directed
Type: Knee high
Vital Signs As Directed
Frequency: Per unit guidelines
Weight As Directed
Frequency: Daily
Pulse Ox/spot Check [RESP] Routine
Quantity: 1
DX Deep Vein Thrombosis Video Routine
01/06/24 18:33
H&H Routine
01/06/24 20:00
Mycophenolate [Cellcept] 500 mg PO BID
01/07/24 05:08
Complete Blood Count/With Diff IN AM
Comprehensive Metabolic Panel IN AM
Lipase IN AM
Magnesium IN AM
01/07/24 06:00
Levothyroxine [Synthroid] 25 mcg PO DAILY@0600
01/07/24 08:00
Cyanocobalamin [Vitamin B-12] 1,000 mcg PO DAILY
Ezetimibe [Zetia] 10 mg PO DAILY
FOLic ACID [Folvite] 0.8 mg PO DAILY
Metoprolol Xl [Toprol Xl] 100 mg PO BID
Abnormal Lab Results
01/06/24 01/06/24 01/06/24
10:31 10:32 13:07
RBC 2.76 L 10^6/uL
(4.20-5.40)
Hgb 8.9 L g/dL 7.6 L g/dL
(12.0-16.0) (12.0-16.0)
Hct 26.0 L %
(37.0-47.0)
MCH 32.2 H pg
(27.0-31.0)
Absolute Lymphs (auto) 0.6 L 10^3/uL
(1.2-3.4)
Neutrophils % 80.8 H %
(42.2-75.2)
Lymphocytes % 11.4 L %
(20.5-51.1)
Sodium 133 L mmol/L
(135-145)
Carbon Dioxide 20 L mmol/L
(22-30)
BUN 33 H mg/dl
(7-17)
Creatinine 1.2 H mg/dL
(0.6-1.0)
Glucose 130 H mg/dl
(70-99)
Lipase 332 H U/L
(23-300)
Crossmatch IS Only See Detail
01/06/24 13:07
01/06/24 10:32
Vital Signs
Initial and Last Documented VS:
Initial Vital Signs
Temp Pulse Resp BP Pulse Ox
97.8 F 60 18 111/55 100
01/06/24 10:04 01/06/24 10:04 01/06/24 10:04 01/06/24 10:04 01/06/24 10:04
Last Documented Vital Signs
Temp Pulse Resp BP Pulse Ox
98.3 F 56 12 145/56 99
01/07/24 03:18 01/07/24 12:00 01/07/24 12:00 01/07/24 12:00 01/07/24 12:00
<Cristian Yoo MD - Last Filed: 01/07/24 14:01>
Orders/Labs/Results
Orders:
Orders
01/06/24 Lunch
NPO
Allow oral meds: Yes
Allow clear liquids: Sips of Clears
NPO with Ice Chips: Yes
01/06/24 10:31
Complete Blood Count/With Diff Urgent
01/06/24 10:32
Comprehensive Metabolic Panel Urgent
Lipase Urgent
01/06/24 10:48
EKG [Electrocardiogram (*1)] Urgent
Reason for Study: Syncope
EKG- Treatment ONCE
01/06/24 11:24
CT Abd/Pel (IV only)-DH only Urgent
Comment:
Reason For Exam: R abd pain, syncope
01/06/24 11:28
HYDROmorphone [Dilaudid] 0.5 mg IV NOW STA
Ondansetron Injectable [Zofran] 4 mg IV NOW STA
01/06/24 12:26
IV Insert/Care/Rem.- Treatment PRN
01/06/24 13:07
Type+Screen Urgent
Hemoglobin Urgent
01/06/24 13:16
Acetaminophen 1000MG/100Ml [Ofirmev] 1,000 mg in 100 ml IV ONCE
Acetaminophen IV Indication:: ED Narcotic Naive Pt-ONCE
01/06/24 13:26
Blood Bank Products [* Blood Bank Products] Stat
Blood Bank Products: *Packed RBC Leuko(PRBC's)
Quantity: 2
Transfuse Today: Yes
Reason: Bleeding
Patient will require pre-treatment for transfusion:: Yes
Diphenhydramine [Benadryl] 12.5 mg IV NOW STA
01/06/24 13:32
Emergent Blood Release Urgent
Blood Bank Products: *Packed RBC Leuko(PRBC's)
Quantity: 2
Reason: Bleeding
A Blood Permit is Required for all Blood.
FOR LAB PICKUP:
Take order sheet to Blood Bank to pick pulling machine operator blood products in validated cooler
Immediately return to patient care area.
Blood products released by
Blood Products picked up by
Sent to
Date and Time
01/06/24 13:38
Prothrombin Complex(Pcc),Human [Kcentra] 1,602 unit Empty Viaflex Container 100 ml [Viaflex Empty Container] 60 ml IV NOW
Does patient have a dx of serious acute active bleeding?: Yes
Does patient have prior history of HIT?: No
01/06/24 14:21
0.9% Sodium Chloride 1000 ml [Nss] 1,000 ml IV BOLUS
01/06/24 14:38
Admit/Transfer Patient As Directed
Co-Sign Provider:
Level of Care: Inpatient admission
Assign to:: IMU- Intermediate Care
Physician / Group: Priyanka/Hospitalist
Diagnosis: acute blood loss anemia, lrge rectus sheath abdominal hematoma active bleed
Reason for Hospitalization: acute blood loss anemia, lrge rectus sheath abdominal hematoma active bleed,
hypotension
Expected length of stay greater than two midnights?: Yes
ELOS- Estimated Length of Stay in days: 4
I certify the patient meets the requirements for IP care: Yes
01/06/24 14:43
Code Status As Directed
Resuscitation Status: Full Code
01/06/24 15:31
PT/INR [Prothrombin Time] Stat
01/06/24 16:34
0.9% Sodium Chloride 1000 ml [Nss] 1,000 ml IV 75 mls/hr
Acetaminophen [Tylenol] 650 mg PO Q4HPRN PRN
Bisacodyl [Dulcolax] 10 mg RECTAL [id number] PRN
Docusate W/Senna [Senokot-S] 1 tablet PO BIDPRN PRN
Morphine Sulfate 2 mg IV Q4HPRN PRN
Ondansetron Injectable [Zofran] 4 mg IV Q6HPRN PRN
Oxycodone [Roxicodone] 5 mg PO Q4HPRN PRN
Polyethylene Glycol Powder [Miralax] 17 grams PO DAILYPRN PRN
01/06/24 16:34
SURGICAL CONSULT Routine
Consulting Provider: Charanjit Don
Was physician already notified: Yes
Reason for consult: acute abdominal wall active bleeding hematoma
Activity As Directed
Activity Level: Ambulate
Intake/ Output As Directed
Frequency: Per unit guidelines
Pneumatic Compression Sleeves As Directed
Type: Knee high
Vital Signs As Directed
Frequency: Per unit guidelines
Weight As Directed
Frequency: Daily
Pulse Ox/spot Check [RESP] Routine
Quantity: 1
DX Deep Vein Thrombosis Video Routine
01/06/24 18:33
H&H Routine
01/06/24 20:00
Mycophenolate [Cellcept] 500 mg PO BID
01/07/24 05:08
Complete Blood Count/With Diff IN AM
Comprehensive Metabolic Panel IN AM
Lipase IN AM
Magnesium IN AM
01/07/24 06:00
Levothyroxine [Synthroid] 25 mcg PO DAILY@0600
01/07/24 08:00
Cyanocobalamin [Vitamin B-12] 1,000 mcg PO DAILY
Ezetimibe [Zetia] 10 mg PO DAILY
FOLic ACID [Folvite] 0.8 mg PO DAILY
Metoprolol Xl [Toprol Xl] 100 mg PO BID
Abnormal Lab Results
01/06/24 01/06/24 01/06/24
10:31 10:32 13:07
RBC 2.76 L 10^6/uL
(4.20-5.40)
Hgb 8.9 L g/dL 7.6 L g/dL
(12.0-16.0) (12.0-16.0)
Hct 26.0 L %
(37.0-47.0)
MCH 32.2 H pg
(27.0-31.0)
Absolute Lymphs (auto) 0.6 L 10^3/uL
(1.2-3.4)
Neutrophils % 80.8 H %
(42.2-75.2)
Lymphocytes % 11.4 L %
(20.5-51.1)
Sodium 133 L mmol/L
(135-145)
Carbon Dioxide 20 L mmol/L
(22-30)
BUN 33 H mg/dl
(7-17)
Creatinine 1.2 H mg/dL
(0.6-1.0)
Glucose 130 H mg/dl
(70-99)
Lipase 332 H U/L
(23-300)
Crossmatch IS Only See Detail
01/06/24 13:07
01/06/24 10:32
Vital Signs
Initial and Last Documented VS:
Initial Vital Signs
Temp Pulse Resp BP Pulse Ox
97.8 F 60 18 111/55 100
01/06/24 10:04 01/06/24 10:04 01/06/24 10:04 01/06/24 10:04 01/06/24 10:04
Last Documented Vital Signs
Temp Pulse Resp BP Pulse Ox
98.3 F 56 12 145/56 99
01/07/24 03:18 01/07/24 12:00 01/07/24 12:00 01/07/24 12:00 01/07/24 12:00
<Lan Harrison PA-C - Last Filed: 01/06/24 16:31>
MDM/Problems Addressed
MDM/Problems Addressed:
Patient found to have an acute abdominal hematoma with active contrast extravasation of unclear nature. She denies any trauma explicitly and there was no reported coughing or sneezing prior to the event. Patient had several vagal events with
bradycardia and hypotension while in the emergency department involving diaphoresis and severe nausea, these were unprovoked. She was noted to have significant decline in hemoglobin from 10.4 at recent hospital discharge to 8.9 on initial
evaluation to 7.6 several hours later. Given this finding coupled with the active extravasation on imaging the decision was then made to proceed with emergent anticoagulant reversal and emergent blood administration. I discussed the case with
interventional radiology did not feel that warranted at this time. Patient be admitted to the hospital service for further management
<Lan Harrison PA-C - Last Filed: 01/06/24 16:31>
*Critical Care Note
Total Time (30-74mins, 75-104mins- exclusive of procedures): 85 minutes
comment:
Critical care time: 85 minutes
Critical care time was exclusive of: Separately billable procedures, treating other patients, and teaching time
Critical care was necessary to treat or prevent imminent or life-threatening deterioration of the following conditions: Blood loss/hemorrhagic shock
Critical care time spent personally by me on the following activities:
[x] Review of old charts
[x] Obtaining history from patient or surrogate
[x] Ordering and review of the laboratory studies
[x] Ordering and review of radiographic studies
[x] Ordering and performing treatments and interventions
[x] Patient patient's response to treatment
[x] Development of treatment plan with patient or surrogate
ED Attending Note
<Lan Harrison PA-C - Last Filed: 01/06/24 16:31>
-
Portions of this chart may have been created with voice recognition software.� Occasional wrong word or��sound alike� substitutions may have occurred due to the inherent limitations of voice recognition software.
<Cristian Yoo MD - Last Filed: 01/07/24 14:01>
ED Attending Note
Patient seen and examined by attending physician: Yes
I performed the substantive portion of visit, reviewed & personally made and approve the management plan that is documented in note by myself or COLEEN.: Yes
ED Attending Note:
Sudden onset of right-sided abdominal pain early this morning. Associated with a syncopal episode at front. Some nausea and vomiting. Bowels have been normal. No bloody stools no dark or tarry stools. Recent admission for GI bleed. Had no
preceding abdominal pain with the GI bleed. Patient back on Xarelto.
On exam patient was mildly hypotensive although current blood pressure stable. She has exquisite tenderness to the right lower quadrant with some referred pain with tapping and moderate tenderness to the right upper quadrant. I clinically feel
like there may be a mass in this location although somewhat difficult secondary to pain. Type and screen was added. Patient currently in CT.
1330... CT scan already reviewed and looks like abdominal wall hematoma with some active bleeding. IR has been contacted. Nothing for them to do. With ongoing bleeding and drop in hemoglobin unmatched blood was ordered. [place] for Xarelto.
Surgery contacted. Hospitalist contacted.
CC=85 min
Discharge Plan
Departure
Patient Disposition: Admit
Date of Disposition: 01/06/24
Time of Disposition: 13:35
Admit to: ICU
Presentation/result/management discussed w/ accepting MD/DO: Hospitalist
Discharge Problem:
Abdominal wall hematoma, Acute blood loss anemia (ABLA)
Interventions
Interventions:
*Risk Screen - Suicide Last Done: 01/06/24 11:02
*General Assessment Last Done: 01/06/24 11:02
*Neglect/Abuse Screening Last Done: 01/06/24 11:02
*ED COVID-19 Vaccine History Last Done: 01/06/24 10:12
*Nursing Disposition Last Done: 01/06/24 16:05
CK-Wqilsr-Jzosjpjmwr Assessment Last Done: 01/06/24 11:05
Discharge Date and Time
Discharge Date/Time: 01/06/24 16:05
[2024-01-06] MEDS: ZOFRAN 4 MG IV (11:39)
[2024-01-06] MEDS: DILAUDID 0.5 MG IV (11:45)
[2024-01-06] MEDS: NSS 1000 IV ×2 (12:13→17:34)
[2024-01-06 13:13] LABS: Hemoglobin 7.6 g/dL (12.0-16.0)
[2024-01-06] MEDS: OFIRMEV 100 IV (13:19)
[2024-01-06] MEDS: BENADRYL 12.5 MG IV (13:40)
--- NOTE | 2024-01-06 14:00 | HPS.HSE ---
Family Physician
-
Family Physician: Carlo Beaver
Chief Complaint
-
right lower abdominal pain, syncope
History of Present Illness
The patient is a 68 yo woman with PMH significant for recent admission for rectal bleeding (12/28-12/29), admission 10/27 for rectal bleeding diverticular versus hemorrhoidal, A.fib on Xarelto, HTN, HLD, Lupus and RA on Cellcept, anemia, kidney
disease s/p recent kidney biopsy, presents to the ED due to sudden onset of right-sided abdominal pain that woke her from her sleep at 4 am; pain brought her to the ED and she had an episode of syncope in the front in ED, a/w nausea and 1 episode
of vomiting. Hgb dropped acutely (10.4 on 12/29 , to 8.9 initially in ED, repeat in ED is 7.6), She had an episode of hypotension (SBP 80s), hypothermia (95 temp), following syncope episode, and was started on immediate IVF and urgent blood ordered,
uncrossed PRBC 2U, and currently transfusing in the ED. Taken to CT which showed a large and acute abdominal wall hematoma with active extravasation; ED provider reviewed the patient with IR, who said no acute intervention at this time to perform.
kCentra is currently running, and plan is IMU admission, hold Xarelto, General Surgery made aware as well.
ED txt: Dilaudid IV, Zofran IV, Ofirmev IV, Benadryl 12.5 IV, Prothrombin Complex Concentrate (kCentra), 2 U PRBC uncrossed due to urgency.
Na 133, CO2 20, Creat 1.2 (1.0 on 12/29), lipase 332
Medical History
Past Medical History
Past Medical History: Reports Arrhythmia (A.fib), CHF, HTN, Hypercholesterolemia, Hypothyroidism and Other (as per HPIessential hypertension, hypothyroidism, atrial fibrillation/aflutter on Xarelto, hx diverticulitis with perforation s/p colostomy
with reversal, admission 10/27 for rectal bledding diverticular versus hemorrhoidal )
Past Surgical History: Reports Bowel Resection (Sigmoid resection with colostomy formation August 2017 for perforated diverticulitis; colostomy reversal April 2018), Gynocological (Tubal ligation) and Orthopedic (L hip replacement 1996
Fredis Valenzuela (Had staph infection of the left hip. Had been receiving steroid injections for pain). Right total knee replacement November 2016))
Social History
Tobacco: Non-smoker
Alcohol: Occasional
Drug: None
Family History
Family History: Not pertinent
Allergies / Home Medications
Allergies reflects when Allergies were last updated in [email or web address].
Home Medications with original date entered in [email or web address]
Allergy/Medication List:
Allergies
Allergy/AdvReac Type Severity Reaction Status Date / Time
atorvastatin Allergy Unknown Throat Verified 01/06/24 10:12
Swelling
lisinopril Allergy Unknown Tongue Verified 01/06/24 10:12
Swelling
adhesive tape Allergy Unknown Verified 01/06/24 10:12
Home Medications
biotin 1 mg capsule 1 mg PO DAILY Supplement 04/03/16
rivaroxaban 20 mg tablet (Xarelto) 20 mg PO QPM Blood clot prevention/tx 04/03/16
ezetimibe 10 mg tablet 10 mg PO DAILY High cholesterol 08/09/17
folic acid 400 mcg tablet 0.8 mg PO DAILY Supplement 08/09/17
levothyroxine 25 mcg tablet (Levoxyl) 25 mcg PO DAILY Thyroid 08/09/17
potassium gluconate 550 mg (90 mg) tablet 90 mg PO DAILY Supplement 08/09/17
cyanocobalamin (vitamin B-12) 1,000 mcg tablet 1,000 mcg PO DAILY Supplement 04/16/18
mycophenolate mofetil 500 mg tablet 500 mg PO BID Autoimmune disorder 04/16/18
amlodipine 5 mg tablet 5 mg PO DAILY Blood pressure 10/13/22
metoprolol succinate 100 mg tablet,extended release 24 hr (Toprol XL) 100 mg PO BID Heart disease/condition 10/13/22
denosumab 60 mg/mL subcutaneous syringe (Prolia) 60 mg SC [id number] bone #0 mL 12/30/23
evolocumab 140 mg/mL subcutaneous syringe (Repatha Syringe) 140 mg SC Q2W High cholesterol #0 mL 12/30/23
Review of Systems
-
A 12 point ROS was completed and negative except as noted: Yes
Physical Exam
Vital Signs
Vital Signs
Temp Pulse Resp BP Pulse Ox
97.8 F 67 16 118/56 99
01/06/24 10:04 01/06/24 13:00 01/06/24 13:00 01/06/24 13:00 01/06/24 13:12
Physical Exam
General: Well Developed, Well Nourished, Appears in Distress (due to abdominal anna, discomfort) and Other (cold, shivering)
HEENT: NormoCephalic, Anicteric and Moist mucous membranes
Respiratory: Clear
Cardiac: S1/S2 and Regular Rhythm
GI: Soft, Normal Bowel Sounds, Tender (right-sided mid and lower quadrant acute tenderness trailing towards posterior right flank) and Other (mid-line scar from prior surgery)
Musculoskeletal: No Clubbing, No Cyanosis and No Edema
Skin: Dry and Other (cool)
Neuro: AO x 3, No Motor Deficits and Nonfocal/grossly intact
Laboratory Results
-
01/06/24 13:07
01/06/24 10:32
Laboratory Results
Total Bilirubin 0.3 mg/dl (0.2-1.3) 01/06/24 10:32
AST 23 U/L (14-36) 01/06/24 10:32
ALT < 10 U/L (0-35) 01/06/24 10:32
Alkaline Phosphatase 70 U/L (38-126) 01/06/24 10:32
Lipase 332 U/L (23-300) H 01/06/24 10:32
Data Reviewed
-
CT Scan: Report Reviewed by me ( 1. LARGE 21 cm in length ACUTE RIGHT ANTERIOR ABDOMINAL WALL RECTUS SHEATH HEMATOMA with ACTIVE BLEEDING and extravasation of contrast into the center of the hematoma. 2. Mild hepatic cirrhosis. 3. Moderate
gallbladder distention with cholelithiasis. 4. Mild biliary dilatation. 5. Small h)
Impression/Plan
-
IMPRESSION:
The patient is a 68 yo woman with PMH significant for recent admission for rectal bleeding (12/28-12/29), admission 10/27 for rectal bleeding diverticular versus hemorrhoidal, A.fib on Xarelto, HTN, HLD, Lupus and RA on Cellcept, anemia, kidney
disease s/p recent kidney biopsy, presents to the ED due to sudden onset of right-sided abdominal pain that woke her from her sleep at 4 am; pain brought her to the ED and she had an episode of syncope in the front in ED, a/w nausea and 1 episode
of vomiting. Hgb dropped acutely (10.4 on 12/29 , to 8.9 initially in ED, repeat in ED is 7.6), Syncope and hypotension in ED.
CT which showed a large and acute abdominal wall hematoma with active extravasation;
ED txt: Dilaudid IV, Zofran IV, Ofirmev IV, Benadryl 12.5 IV, Prothrombin Complex Concentrate (kCentra), 2 U PRBC uncrossed due to urgency.
Na 133, CO2 20, Creat 1.2 (1.0 on 12/29), lipase 332
#LARGE 21 cm in length ACUTE RIGHT ANTERIOR ABDOMINAL WALL RECTUS SHEATH HEMATOMA with ACTIVE BLEEDING and extravasation of contrast into the center of the hematoma.
-IMU admission for close monitoring of hemodynamic status
-2U PRBC uncrossed transfusing in ED now
-s/p 800 mL IVF NS, cont gentle IVF and monitor BP
-serial H & H, repeat 6 pm s/p transfusion
-IR discussed with ED provider-no intervention they can perform at this time after their review
-General Surgery consultation placed and they are aware of the patient admission
-hold Xarelto
-kCentra given transfusing now
-check coags
-pain meds prn, w hold parameters, prn anti-emetics
#Moderate gallbladder distention with cholelithiasis incidentally found no CT imaging
-lipase mildly elevated in ED-will repeat in am, clinically does not likely have pancreatitis, however pt is already NPO and w IVF
-repeat CMP in am, repeat lipase in am, and monitor clinically
#Arrthythmia (Atrial fibrillation)
=BB w hold parameters, restart tomorrow if pt stable
- hold Xarelto
#CHF
-gentle IVF, monitor I/O daily weights
#HTN, hypotensive likely due to bleeding and possibly vasovagal
-IMU, tele, monitor hemodynamics
-hold amlodipine
-BB to start tomorrow w hold parameters
#Hypercholesterolemia
# Hypothyroidism
-Synthroid
#Systemic lupus, rheumatoid arthritis,
-continue Cellcept (Mycophenolate Mofetil)
# Renal insufficiency, s/p recent renal biopsy
-Moderate chronic bilateral renal disease on CT
-repeat labs in am, gentle IVF and avoid nephrotoxic agents
# Impaired vision
#Diverticulosis with sigmoid perforation 2018)
-Severe colonic diverticulosis on CT noted, no GI bleeding at this time
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
DVT proph-PCDs
Full Code
[2024-01-06] MEDS: KCENTRA 60 UNIT IV (14:18)
[2024-01-06 15:48] LABS: INR 1.88; PT 21.5 Sec (11.4-14.6)
--- NOTE | 2024-01-06 15:49 | CON.GS ---
Addendum entered and electronically signed by Charanjit Don MD 01/06/24 16:41:
Patient seen and examined. Agree with assessment plan as documented below.
Patient is a 68 yo F with a PMH of HTN, A-fib (on Xarelto, LD 01/04 PM), hypothyroidism, lupus/RA (on CellCept), CKD, and perforated diverticulitis s/p Clemens's procedure with [place] [address] Macias. She presents with RIGHT-sided
abdominal pain, dizziness, and syncopal episode. Her symptoms began early this morning and awakened her from sleep. She denies any trauma. She denies any coughing or sneezing episodes. Currently she states that her abdominal pain is mildly
better, but still present. She denies any current dizziness or lightheadedness. Of note, she was recently admitted to from 12/27 to 12/30 with bright red blood per rectum.
Gen: NAD, pale
Abd: soft, tender to palpation in RIGHT mid-abdomen, mid firmness, ND, no ecchymosis, no skin necrosis or breakdown
Labs and CT scan imaging were reviewed.
Patient is a 68 yo F p/w acute spontaneous bleed of the RIGHT rectus.
Unsure exactly why she developed this spontaneous bleed, though likely a traumatic event from either positioning or Valsalva. Bleeding complicated by an largely a component of active coagulopathy. IR consultation, unable to manage via percutaneous
intervention. No plans for surgical intervention at this time. Recommend aggressive reversal of her anticoagulation. Transfuse as needed. Should she continue to show signs of active bleeding 48 hours post most recent dose of Xarelto, would
consider surgical intervention at that time. All questions answered.
-- No plans for surgical intervention at this time
-- NPO, IVF
-- Hold all anticoagulation
-- Ice and compression to abdomen
-- Trend H&H every 6-8 hours, transfusion as needed
Original Note:
Consultation
-
Requesting Provider: Priyanka
Medical History
-
Chief Complaint: abdominal pain
History of Present Illness:
Ms. Pope is a 68 yo female with a h/o Aaron's with subsequent colostomy reversal for diverticulitis in 2018, PAF on Xarelto, Lupus/RA (on Cellcept), renal disease with recent biopsy 11/30/23 and recent admission (12/28-12/29) for LGI bleeding
which was suspected to be diverticular with outpatient GI follow up planned for colonoscopy upon discharge who presents with acute onset of lower right sided abdominal pain which awakened her from sleep around 4am this morning. She presented to the
ED later this morning for evaluation as the pain persisted and had an episode of syncope in the waiting room with hypotension noted. She denies recent injury or trauma. She is pale and reports she is cold. Pain still present, but mildly better. She
denies nausea or vomiting. She was voiding well and without bowel changes prior to presentation.
Past Medical History
Past Medical History: Arrhythmias (PAF), Diverticulitis, HTN, Hypercholesterolemia, Hypothyroidism, Renal Failure (CKD/renal biopsy with severe vascular sclerosis consistent with arterio-nephrosclerosis) and Other (RA/Lupus (on Cellcept), Anemia)
Past Surgical History: Bowel Resection (Aaron's with subsequent colostomy reversal [place] [address] Macias), Gynecological (tubal ligation) and Orthopedic (left MARLEN, R TKA)
Social History
Tobacco: Non-Smoker
Alcohol: Occasional
Personal:
Living: With Family
Family History
Family History: Reviewed & Not Pertinent
Allergies / Home Medications
Allergy/AdvReac Type Severity Reaction Status Date / Time
atorvastatin Allergy Unknown Throat Verified 01/06/24 10:12
Swelling
lisinopril Allergy Unknown Tongue Verified 01/06/24 10:12
Swelling
adhesive tape Allergy Unknown Verified 01/06/24 10:12
�Medication �Instructions �Recorded �Confirmed �Type
biotin 1 mg capsule 1 mg PO DAILY Supplement 04/03/16 01/06/24 History
rivaroxaban 20 mg tablet (Xarelto) 20 mg PO QPM Blood clot 04/03/16 01/06/24 History
prevention/tx
ezetimibe 10 mg tablet 10 mg PO DAILY High cholesterol 08/09/17 01/06/24 History
folic acid 400 mcg tablet 0.8 mg PO DAILY Supplement 08/09/17 01/06/24 History
levothyroxine 25 mcg tablet 25 mcg PO DAILY Thyroid 08/09/17 01/06/24 History
(Levoxyl)
potassium gluconate 550 mg (90 mg) 90 mg PO DAILY Supplement 08/09/17 01/06/24 History
tablet
cyanocobalamin (vitamin B-12) 1,000 mcg PO DAILY Supplement 04/16/18 01/06/24 History
1,000 mcg tablet
amlodipine 5 mg tablet 5 mg PO DAILY Blood pressure 10/13/22 01/06/24 History
metoprolol succinate 100 mg 100 mg PO BID Heart 10/13/22 01/06/24 History
tablet,extended release 24 hr disease/condition
(Toprol XL)
denosumab 60 mg/mL subcutaneous 60 mg SC [id number] bone #0 mL 12/30/23 01/06/24 Rx
syringe (Prolia)
evolocumab 140 mg/mL subcutaneous 140 mg SC Q2W High cholesterol #0 12/30/23 01/06/24 Rx
syringe (Repatha Syringe) mL
mycophenolate mofetil 250 mg 500 mg PO BID 01/06/24 01/06/24 History
capsule
Review of Systems
-
History Source: Patient and Family
All other systems: Negative unless noted
A 10 point review of systems was completed, and was negative except as per HPI.
Physical Exam
Vital Signs
Temp Pulse Resp BP Pulse Ox
97.6 F 58 18 130/67 97
01/06/24 15:00 01/06/24 15:00 01/06/24 15:00 01/06/24 15:00 01/06/24 15:00
01/05/24 01/06/24 01/07/24
06:59 06:59 06:59
Actual Weight 68.7 kg
Body Mass Index (BMI) 22.4
Lab Results
01/06/24 13:07
01/06/24 10:32
WBC 5.0 10^3/uL (4.8-10.8) 01/06/24 10:31
Hgb 7.6 g/dL (12.0-16.0) L 01/06/24 13:07
Hct 26.0 % (37.0-47.0) L 01/06/24 10:31
Plt Count 227 10^3/uL (130-400) 01/06/24 10:31
Abs Immat Gran (auto) 0.0 10^3/uL (0-0.05) 01/06/24 10:31
Neutrophils % 80.8 % (42.2-75.2) H 01/06/24 10:31
Physical Exam
General: Pain
HEENT: Moist Mucous Membranes
Respiratory: Non Labored Respirations
GI: Soft, Tender (right hemiabdomen tender to light touch) and Distended (right sided distention)
Skin: Warm and Other (pale)
Neuro: Awake, Alert and AO x 3
Psych: Calm
Assessment / Plan
-
Ms. De La Garza is a 68 yo female with a h/o Aaron's with subsequent colostomy reversal for diverticulitis in 2018, PAF on Xarelto, Lupus/RA (on Cellcept), renal disease with recent biopsy 11/30/23 and recent admission (12/28-12/29) for LGI bleeding
which was suspected to be diverticular who presents with acute onset of lower right sided abdominal pain which awakened her from sleep around 4am this morning. Episode of syncope in ED waiting room with hypotension.
CT imaging with 21 cm evolving acute right anterior abdominal wall rectus sheath hematoma, actively bleeding on imaging. ED provider d/w IR and not amenable to IR embolization. Kcentra given and patient being transfused 2 units of blood emergently
for hb of 7.6 from 8.9 since presentation. Last hb was 10.4 upon discharge on 12/30/23. Afebrile with stable BP's currently. Mild hypothermia and hypotension earlier this afternoon. Kcentra given in ED.
No plans for emergent OR at this time. High risk for bleeding complications with any procedure given Xarelto use. Will follow expectantly with supportive measures s/p Kcentra administration. OR for management of bleeding as last resort.
--Keep NPO
--Hold all AC including chemical VTE ppx
--Trend h/h and transfuse as needed
--Bedrest
--Ice pack to right abdomen
[2024-01-06] MEDS: ROXICODONE 5 MG PO ×2 (18:12→23:50)
--- NOTE | 2024-01-06 18:25 | PTCARENOTE ---
Received patient from the ED to room 3355. Pt had 2 units of PRBCs running but finished shortly after arrival. She reports pain of 8/10 to R abdomen, worse with movement. Medicated with Oxycodone, see OCT. Pt reports she wanted to try the Oxycodone
before Morphine even though she is reporting severe pain. She voided on the bedpan. VS stable. IVF started per OCT. Assessment, care and VS as charted.
[2024-01-06 18:39] LABS: Hematocrit 30.5 % (37.0-47.0)
[2024-01-06 18:41] LABS: Hemoglobin 10.7 g/dL (12.0-16.0)
[2024-01-06] MEDS: TYLENOL 650 MG PO (19:52)
[2024-01-06] MEDS: CELLCEPT 500 MG PO (19:53)
--- NOTE | 2024-01-06 20:13 | PTCARENOTE ---
Received pt from [facility]. Pt is AAOx3. NSR on the monitor. On RA O2 sat 95%, lungs clear. Pt voids on the BP. Pt c/o right abd pain and tenderness, PRN Tylenol given (see MAR). NS infusing @ 75 ml/hr. Mouth care provided. Pt is laying
comfortable in bed with call hatfield in reach.
[2024-01-06 23:39] LABS: Hematocrit 27.7 % (37.0-47.0); Hemoglobin 9.9 g/dL (12.0-16.0)
[2024-01-07] VITALS (15 sets, daily range): BP systolic 110–148; BP diastolic 50–83; PULSE 62; O2SAT 100; BMI 22.1
[2024-01-07] MEDS: SYNTHROID 25 MCG PO (05:11)
[2024-01-07] MEDS: ROXICODONE 5 MG PO ×4 (05:11→22:12)
[2024-01-07 05:41] LABS: % Basophils 0.8 % (0-2); % Eosinophils 0.3 % (0-6); % Immature Granulocytes 0.3 % (0-0.5); % Lymphocytes 8.8 % (20.5-51.1); % Monocytes 8.3 % (1.7-9.3); % Neutrophils 81.5 % (42.2-75.2); Absolute Lymphocytes 0.4 10^3/uL (1.2-3.4); Absolute Monocytes 0.3 10^3/uL (0.1-0.6); Absolute Neutrophils 3.2 10^3/uL (1.4-6.5); Hematocrit 26.4 % (37.0-47.0); Hemoglobin 9.5 g/dL (12.0-16.0); Mean Corpuscular Volume 86.3 fL (81.0-99.0); Mean Platelet Volume 9.2 fL (7.4-10.4); Nucleated Red Blood Cells % 0 %; Platelet Count 164 10^3/uL (130-400); Red Blood Cell Count 3.06 10^6/uL (4.20-5.40); Red Cell Dist. Width 16.3 % (11.5-14.5)
[2024-01-07 06:07] LABS: ALT (SGPT) < 10 U/L (0-35); AST (SGOT) 21 U/L (14-36); Albumin 3.4 g/dl (3.5-5.0); Alkaline Phosphatase 74 U/L (38-126); Blood Urea Nitrogen 24 mg/dl (7-17); Calcium 8.4 mg/dl (8.4-10.2); Carbon Dioxide 18 mmol/L (22-30); Chloride 107 mmol/L (98-107); Estimated Creatinine Clearance 69 ml/min; Glucose 98 mg/dl (70-99); Lipase 133 U/L (23-300); Magnesium 1.8 mg/dl (1.6-2.3); Potassium 4.6 mmol/L (3.5-5.1); Sodium 133 mmol/L (135-145); Total Bilirubin 0.8 mg/dl (0.2-1.3); Total Protein 5.8 g/dl (6.3-8.2); eGFR > 60.00
--- NOTE | 2024-01-07 06:45 | W.PN.HOSP.TC ---
Today's Communication/Plan
-
.
Assessment / Plan
Assessment / Plan
Physical Exam
General: Well Developed, Well Nourished, not in distress
HEENT: Normocephalic, Anicteric and Moist mucous membranes
Respiratory: Clear
Cardiac: S1/S2 and Regular Rhythm
GI: Soft, Normal Bowel Sounds, Tender (right-sided mid and lower quadrant acute tenderness trailing towards posterior right flank) and Other (mid-line scar from prior surgery)
Musculoskeletal: No Clubbing, No Cyanosis and No Edema
Skin: Dry and Other (cool)
Neuro: AO x 3, No Motor Deficits and Nonfocal/grossly intact
Psych: no agitation, pleasant
68 yo woman with A.fib on Xarelto presented to the ED due to sudden onset of right-sided abdominal pain. CT which showed a large and acute abdominal wall hematoma with active extravasation;
#Hemorrhagic shock due to Large 21 cm in length acute right anterior abdominal wall rectus sheath hematoma due to or exacerbated by use of Xarelto .
She is feeling better, less pain, able to move more now. No bruising seen on the skin
Change to Tylenol 1gm TID, c/w PRN oxycodone
Off AC for now
HGB stable at 9
s/p Prothrombin Complex Concentrate (Kcentra)
S/p Two units of RBCs
Appreciate surgery input
# Acute blood loss anemia due to hematoma from Xarelto
s/p 2 units of RBCs,
H& H Q 12
#Moderate gallbladder distention with cholelithiasis incidentally found no CT imaging
Abdominal pain around the rectal sheath area. No nausea or vomiting.
Continue with diet
# Paroxysmal atrial fibrillation
Rate is controlled and regular. She is in sinus rhythm. Per patient, her director community center was considering stopping Xarelto due to intolerance
Her heart rate around 50-60.
# Chronic heart failure with a preserved ejection fraction
Not in acute failure.
#Primary hypertension. Holding amlodipine due to low blood pressure on arrival, will resume when blood pressure stabilizes.
# Hyponatremia, mild. No confusion
#Hypercholesterolemia, no changes intended
# Hypothyroidism
-Synthroid
# Mild thrombocytopenia. Drop in platelet count likely due to bleeding episode. Monitor platelet level.
#Systemic lupus, rheumatoid arthritis,
-continue CellCept (Mycophenolate Mofetil)
# Acute kidney injury
Creatinine came down to 0.8. No renal colic. No hematuria. Status post IV fluids
History of recent renal biopsy
-Moderate chronic bilateral renal disease on CT
# Impaired vision
#Diverticulosis with sigmoid perforation 2017)
-Severe colonic diverticulosis on CT noted, no GI bleeding at this time
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
DVT proph-PCDs
Full Code
Total time spent to see the patient, examine the patient on the floor, review data and lab results, discuss treatment plan with patient, nursing staff around 55 minutes
Anticipated Discharge: 24 - 48 hours
Subjective/Interval History
-
Date of Service: January 07, 2024
No chest pain
Bad wall pain is less today
Objective Data
-
Labs:
Laboratory Results
01/06/24 01/07/24
23:30 05:08
WBC 4.0 L
Hgb 9.9 L 9.5 L
Hct 27.7 L 26.4 L
Plt Count 164 D
Sodium 133 L
Potassium 4.6
Chloride 107
Carbon Dioxide 18 L
BUN 24 H
Creatinine 0.8
Glucose 98
Calcium 8.4
Total Bilirubin 0.8
AST 21
ALT < 10
Alkaline Phosphatase 74
Vital Signs:
Vital Signs
Temp Pulse Resp BP Pulse Ox
98.3 F 60 14 116/70 96
01/07/24 03:18 01/07/24 06:00 01/07/24 06:00 01/07/24 06:00 01/07/24 06:00
I&O
01/05/24 01/06/24 01/07/24
06:59 06:59 06:59
Intake Total 1500 / 1500
Output Total 625 / 625
Balance 875 / 875
--- NOTE | 2024-01-07 08:39 | W.PN.GS2 ---
Today's Communication / Plan
-
-- Regular diet
-- Hold anticoagulants
-- Trend H&H
Assessment / Plan
-
Patient is a 68 yo F p/w spontaneous bleed of the RIGHT rectus with active extravasation in the setting of coagulopathy on home Xarelto
Clinical improvement posttransfusion and holding Xarelto. No plans or indication for surgical intervention at this time.
-- No plans for surgery at this time
-- Regular diet
-- Hold anticoagulants
-- Trend H&H
-- Ice and compression to abdomen
Subjective Data
-
Date of Service: January 07, 2024
Feels improved. Pain improved. No dizziness or lightheadedness. Afebrile. Voiding.
Objective Data
-
Intake and Output
01/06/24 01/07/24 01/08/24
06:59 06:59 06:59
Intake Total 1500 / 1500
Output Total 625 / 625
Balance 875 / 875
Intake:
IV fluids (Total) 1000 / 1000
Blood Product Amount Infused ( 500 / 500
mL)
Packed Rbc Leukoreduced Unit 250 / 250
[id number]
Packed Rbc Leukoreduced Unit 250 / 250
[id number]
Output:
Urine, Voided 625 / 625
Other:
Number of approximated LARGE 1
amounts of urine
Vital Signs
Temp Pulse Resp BP Pulse Ox
98.3 F 52 10 121/50 98
01/07/24 03:18 01/07/24 08:00 01/07/24 08:00 01/07/24 08:00 01/07/24 08:00
Lab Results
01/07/24 05:08
01/07/24 05:08
Calcium 8.4 mg/dl (8.4-10.2) 01/07/24 05:08
Magnesium 1.8 mg/dl (1.6-2.3) 01/07/24 05:08
Total Bilirubin 0.8 mg/dl (0.2-1.3) 01/07/24 05:08
AST 21 U/L (14-36) 01/07/24 05:08
ALT < 10 U/L (0-35) 01/07/24 05:08
Alkaline Phosphatase 74 U/L (38-126) 01/07/24 05:08
Total Protein 5.8 g/dl (6.3-8.2) L 01/07/24 05:08
Albumin 3.4 g/dl (3.5-5.0) L 01/07/24 05:08
Physical Exam
-
Gen: NAD
Abd: soft, mild firmness of RIGHT mid abdomen overlying rectus, no significant ecchymosis, no skin breakdown, mild discomfort
[2024-01-07] MEDS: VITAMIN B-12 1000 MCG PO (09:28)
[2024-01-07] MEDS: TOPROL XL 100 MG PO ×2 (09:28→19:37)
[2024-01-07] MEDS: CELLCEPT 500 MG PO ×2 (09:28→19:37)
[2024-01-07] MEDS: FOLVITE 0.800000000000000044 MG PO (09:28)
[2024-01-07] MEDS: TYLENOL 1000 MG PO ×3 (09:28→22:12)
[2024-01-07] MEDS: ZETIA 10 MG PO (09:28)
--- NOTE | 2024-01-07 13:26 | PTCARENOTE ---
Assumed care of patient this morning. She reports pain is better than yesterday but batch still operator to touch. She got a diet and ate lunch. Denies any issues with lunch. Reports pain is still tolerable. Assessment, care and VS as charted.
[2024-01-07 18:16] LABS: Hemoglobin 9.7 g/dL (12.0-16.0)
--- NOTE | 2024-01-07 23:49 | PTCARENOTE ---
REPORT GIVEN TO NEXT . PAIN MEDS GIVEN SEE MAR-
[2024-01-08] VITALS (13 sets, daily range): BP systolic 105–146; BP diastolic 51–78; PULSE 62–75; O2SAT 100; BMI 21.8; BMI 21.5
--- NOTE | 2024-01-08 00:28 | PTCARENOTE ---
Received pt from nightshift RN. Pt is AAOx3. NSR/sinus eboni on the monitor. On RA O2 sat 96%, lungs clear. BRPx1 w/ RW. Pt is laying comfortable in bed with call hatfield in reach.
[2024-01-08] MEDS: ROXICODONE 5 MG PO ×2 (05:18→22:44)
[2024-01-08] MEDS: SYNTHROID 25 MCG PO (05:18)
[2024-01-08 05:44] LABS: Hematocrit 26.8 % (37.0-47.0); Hemoglobin 8.9 g/dL (12.0-16.0); Mean Corp Hgb Conc. 33.2 g/dL (33.0-37.0); Mean Corpuscular Hgb 30.5 pg (27.0-31.0); Mean Corpuscular Volume 91.8 fL (81.0-99.0); Mean Platelet Volume 9.7 fL (7.4-10.4); Platelet Count 169 10^3/uL (130-400); Red Blood Cell Count 2.92 10^6/uL (4.20-5.40); White Blood Cell Count 4.9 10^3/uL (4.8-10.8)
[2024-01-08 06:08] LABS: Blood Urea Nitrogen 24 mg/dl (7-17); Calcium 8.7 mg/dl (8.4-10.2); Carbon Dioxide 18 mmol/L (22-30); Chloride 108 mmol/L (98-107); Estimated Creatinine Clearance 62 ml/min; Glucose 108 mg/dl (70-99); Potassium 4.3 mmol/L (3.5-5.1); Sodium 132 mmol/L (135-145); eGFR > 60.00
[2024-01-08] MEDS: ZETIA 10 MG PO (09:07)
[2024-01-08] MEDS: TYLENOL 1000 MG PO ×2 (09:07→22:44)
[2024-01-08] MEDS: FOLVITE 0.800000000000000044 MG PO (09:08)
[2024-01-08] MEDS: TOPROL XL 100 MG PO ×2 (09:08→20:29)
[2024-01-08] MEDS: VITAMIN B-12 1000 MCG PO (09:08)
[2024-01-08] MEDS: CELLCEPT 500 MG PO ×2 (09:08→20:28)
--- NOTE | 2024-01-08 09:13 | PTOTSP ---
pt currently demonstrates ability to complete simple ADLs, functional transfers, ambulation with no assistance. pt demonstrates decreased endurance, as she has been hospitalized for similar symptoms. education provided regarding endurance training,
energy conservation. pt verbalized understanding. will defer to PT at this time, no acute OT needs identified
--- NOTE | 2024-01-08 10:10 | W.PN.GS2 ---
Today's Communication / Plan
-
-- No plans for surgery at this time
-- Repeat H&H this afternoon
Assessment / Plan
-
Patient is a 68 yo F p/w spontaneous bleed of the RIGHT rectus with active extravasation in the setting of coagulopathy on home Xarelto
Clinical improvement posttransfusion and holding Xarelto. Slight drift in Hb, trend. No plans or indication for surgical intervention at this time.
-- No plans for surgery at this time
-- Regular diet
-- Hold anticoagulants
-- Repeat H&H this afternoon
-- Ice and compression to abdomen
Subjective Data
-
Date of Service: January 08, 2024
No complaints. Feels improved. Less abdominal pain. No fevers or chills. No nausea or vomiting with clears.
Objective Data
-
Intake and Output
01/07/24 01/08/24 01/09/24
06:59 06:59 06:59
Intake Total 1500 / 1500 410 / 410
Output Total 625 / 625
Balance 875 / 875 410 / 410
Intake:
Oral fluids 410 / 410
IV fluids (Total) 1000 / 1000
Blood Product Amount Infused ( 500 / 500
mL)
Packed Rbc Leukoreduced Unit 250 / 250
[id number]
Packed Rbc Leukoreduced Unit 250 / 250
[id number]
Output:
Urine, Voided 625 / 625
Other:
Number of approximated SMALL 1
amounts of urine
Number of approximated MODERATE 1 1
amounts of urine
Number of approximated LARGE 1
amounts of urine
Vital Signs
Temp Pulse Resp BP Pulse Ox
98.0 F 62 10 131/58 96
01/08/24 07:37 01/08/24 09:08 01/08/24 06:00 01/08/24 09:08 01/08/24 06:00
Lab Results
01/08/24 05:06
01/08/24 05:06
Calcium 8.7 mg/dl (8.4-10.2) 01/08/24 05:06
Magnesium 1.8 mg/dl (1.6-2.3) 01/07/24 05:08
Total Bilirubin 0.8 mg/dl (0.2-1.3) 01/07/24 05:08
AST 21 U/L (14-36) 01/07/24 05:08
ALT < 10 U/L (0-35) 01/07/24 05:08
Alkaline Phosphatase 74 U/L (38-126) 01/07/24 05:08
Total Protein 5.8 g/dl (6.3-8.2) L 01/07/24 05:08
Albumin 3.4 g/dl (3.5-5.0) L 01/07/24 05:08
Physical Exam
-
Gen: NAD
Abd: soft, NT/ND, non-peritoneal, slight firmness of RIGHT abdomen
--- NOTE | 2024-01-08 14:23 | W.PN.HOSP.TC ---
Today's Communication/Plan
-
Monitor vital signs and see plan
Monitor for further bleeding
Monitor hemoglobin later today
Continue to hold Xarelto
Assessment / Plan
Assessment / Plan
Physical Exam
General: Well Developed, Well Nourished, not in distress
HEENT: Normocephalic, Anicteric and Moist mucous membranes
Respiratory: Clear
Cardiac: S1/S2 and Regular Rhythm
GI: Soft, Normal Bowel Sounds, Tender (right-sided mid and lower quadrant acute tenderness trailing towards posterior right flank) and Other (mid-line scar from prior surgery)
Musculoskeletal: No Clubbing, No Cyanosis and No Edema
Skin: Dry and Other (cool)
Neuro: AO x 3, No Motor Deficits and Nonfocal/grossly intact
Psych: no agitation, pleasant
68 yo woman with A.fib on Xarelto presented to the ED due to sudden onset of right-sided abdominal pain. CT which showed a large and acute abdominal wall hematoma with active extravasation;
#Hemorrhagic shock due to Large 21 cm in length acute right anterior abdominal wall rectus sheath hematoma due to or exacerbated by use of Xarelto .
She is feeling better, less pain, able to move more now. No bruising seen on the skin
Change to Tylenol 1gm TID, c/w PRN oxycodone
Off AC for now
HGB 8.9. Repeat later today
s/p Prothrombin Complex Concentrate (Kcentra)
S/p Two units of RBCs
Appreciate surgery input
Mild hyponatremia
Monitor
# Acute blood loss anemia due to hematoma from Xarelto
s/p 2 units of RBCs
Monitor hemoglobin
#Moderate gallbladder distention with cholelithiasis incidentally found no CT imaging
Abdominal pain around the rectal sheath area. No nausea or vomiting.
Continue with diet
# Paroxysmal atrial fibrillation
Rate is controlled and regular. She is in sinus rhythm. Per patient, her historian research assistant was considering stopping Xarelto due to intolerance
# Chronic heart failure with a preserved ejection fraction
Not in acute failure.
#Primary hypertension. Holding amlodipine due to low blood pressure on arrival, will resume when blood pressure stabilizes.
# Hyponatremia, mild. No confusion
#Hypercholesterolemia, no changes intended
# Hypothyroidism
-Synthroid
# Mild thrombocytopenia. Drop in platelet count likely due to bleeding episode. Monitor platelet level.
#Systemic lupus, rheumatoid arthritis,
-continue CellCept (Mycophenolate Mofetil)
# Acute kidney injury
Resolved
History of recent renal biopsy
-Moderate chronic bilateral renal disease on CT
# Impaired vision
#Diverticulosis with sigmoid perforation 2017)
-Severe colonic diverticulosis on CT noted, no GI bleeding at this time
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
DVT proph-PCDs
Full Code
Total time spent to see the patient, examine the patient on the floor, review data and lab results, discuss treatment plan with patient, nursing staff around 52 minutes
Anticipated Discharge: 24 - 48 hours
Subjective/Interval History
-
Date of Service: January 08, 2024
Denies nausea
Objective Data
-
Labs:
Laboratory Results
01/08/24
05:06
WBC 4.9
Hgb 8.9 L
Hct 26.8 L
Plt Count 169
Sodium 132 L
Potassium 4.3
Chloride 108 H
Carbon Dioxide 18 L
BUN 24 H
Creatinine 0.9
Glucose 108 H
Calcium 8.7
Vital Signs:
Vital Signs
Temp Pulse Resp BP Pulse Ox
98.2 F 76 10 133/71 99
01/08/24 11:27 01/08/24 10:00 01/08/24 12:00 01/08/24 12:00 01/08/24 12:00
I&O
01/07/24 01/08/24 01/09/24
06:59 06:59 06:59
Intake Total 1500 / 1500 410 / 410
Output Total 625 / 625
Balance 875 / 875 410 / 410
[2024-01-08 15:04] LABS: Hematocrit 27.1 % (37.0-47.0); Hemoglobin 9.1 g/dL (12.0-16.0)
--- NOTE | 2024-01-08 16:11 | CM ---
Met with patient at bedside; initial assessment completed
Hx of A Fib; developed an ABD wall hematoma. Xarelto on hold; monitoring VS, Bleeding and Hgb
Pharmacy verified: [facility]
Patient and her spouse live in a split level home; 3 steps to enter; 5 steps between floors; railings on stairs; bath on 2nd floor has walk-in shower with grab bar and bench
PLOF: patient reported that she is independent with ADLs and stairs; only uses a cane PRN when she leaves the house; retired; drives
SNF/Rehab/Home Health utilization history: [facility] 2017; has had Home Health services from [facility], none recently
Transportation: will provide ride home
Plan: discharge to home when medically stable; do not anticipate needs
[2024-01-08] MEDS: TYLENOL PO (17:00)
--- NOTE | 2024-01-08 18:26 | PTCARENOTE ---
Rec'd pt this AM. Denies any symptoms of nausea, dizziness. resting comfortably. Hgb improved.
[2024-01-08 19:13] LABS: Hepatitis C Antibody Negative (Negative)
[2024-01-09] VITALS (7 sets, daily range): BP systolic 115–147; BP diastolic 60–69; BMI 21.6
--- NOTE | 2024-01-09 00:22 | PTCARENOTE ---
Received pt at change of shift. No signs of bleeding. Pt c/o pain in RLQ of abdomen; tender to palpation and when ambulating. Administered PRN Vivian (see MAR). OOBx1 with RW to bathroom; steady gait. Resting in bed with call hatfield in reach.
[2024-01-09 05:55] LABS: % Eosinophils 2.3 % (0-6); % Immature Granulocytes 0.3 % (0-0.5); % Lymphocytes 19.1 % (20.5-51.1); % Monocytes 9.9 % (1.7-9.3); % Neutrophils 67.4 % (42.2-75.2); Absolute Eosinophils 0.1 10^3/uL (0-0.7); Absolute Lymphocytes 0.8 10^3/uL (1.2-3.4); Absolute Monocytes 0.4 10^3/uL (0.1-0.6); Absolute Neutrophils 2.6 10^3/uL (1.4-6.5); Hematocrit 25.9 % (37.0-47.0); Hemoglobin 8.5 g/dL (12.0-16.0); Mean Corp Hgb Conc. 32.8 g/dL (33.0-37.0); Mean Corpuscular Hgb 30.7 pg (27.0-31.0); Mean Corpuscular Volume 93.5 fL (81.0-99.0); Mean Platelet Volume 9.2 fL (7.4-10.4); Nucleated Red Blood Cells % 0.5 %; Platelet Count 169 10^3/uL (130-400); Red Blood Cell Count 2.77 10^6/uL (4.20-5.40); Red Cell Dist. Width 15.5 % (11.5-14.5); White Blood Cell Count 3.9 10^3/uL (4.8-10.8)
[2024-01-09] MEDS: SYNTHROID 25 MCG PO (06:06)
[2024-01-09 06:19] LABS: Blood Urea Nitrogen 21 mg/dl (7-17); Calcium 8.5 mg/dl (8.4-10.2); Carbon Dioxide 21 mmol/L (22-30); Chloride 108 mmol/L (98-107); Estimated Creatinine Clearance 62 ml/min; Glucose 94 mg/dl (70-99); Potassium 4.2 mmol/L (3.5-5.1); Sodium 136 mmol/L (135-145); eGFR > 60.00
[2024-01-09] MEDS: VITAMIN B-12 1000 MCG PO (08:17)
[2024-01-09] MEDS: ZETIA 10 MG PO (08:17)
[2024-01-09] MEDS: FOLVITE 0.800000000000000044 MG PO (08:17)
[2024-01-09] MEDS: TYLENOL 1000 MG PO (08:17)
[2024-01-09] MEDS: CELLCEPT 500 MG PO (08:17)
[2024-01-09] MEDS: TOPROL XL 100 MG PO (08:18)
--- NOTE | 2024-01-09 10:32 | PTCARENOTE ---
Assumed care of patient at beginning of this shift from previous RN. No outward bruising noted to abdomen, but tender to touch. Hg 8.5 this morning. See worklist for full assessment and vital signs; see MAR for med administration.
--- NOTE | 2024-01-09 11:53 | W.PN.UPDATE ---
Update Note
Progress Note Update
Approaching 72 hrs with stable Hb and no need for further transfusions.
Typically these hematomas resorb over the course of a few weeks.
Indications for intervention include uncontrolled hemorrhage, skin necrosis.
Rec d/w Cardiology the continuation of A/C in light of this significant bleeding event.
No plan for surgical intervention at this time, pls call with ?s.
--- NOTE | 2024-01-09 11:57 | W.PN.HOSP.TC ---
Today's Communication/Plan
-
Monitor vital signs and see plan
Hemoglobin stable, spoke with surgeon and will discharge patient home
DC today
Time of discharge 38 minutes
Assessment / Plan
Assessment / Plan
Physical Exam
General: Well Developed, Well Nourished, not in distress
HEENT: Normocephalic, Anicteric and Moist mucous membranes
Respiratory: Clear
Cardiac: S1/S2 and Regular Rhythm
GI: Soft, Normal Bowel Sounds, Tender (right-sided mid and lower quadrant acute tenderness trailing towards posterior right flank) and Other (mid-line scar from prior surgery)
Musculoskeletal: No Clubbing, No Cyanosis and No Edema
Skin: Dry and Other (cool)
Neuro: AO x 3, No Motor Deficits and Nonfocal/grossly intact
Psych: no agitation, pleasant
68 yo woman with A.fib on Xarelto presented to the ED due to sudden onset of right-sided abdominal pain. CT which showed a large and acute abdominal wall hematoma with active extravasation;
#Hemorrhagic shock due to Large 21 cm in length acute right anterior abdominal wall rectus sheath hematoma due to or exacerbated by use of Xarelto .
She is feeling better, less pain, able to move more now. No bruising seen on the skin
Change to Tylenol 1gm TID, c/w PRN oxycodone
Off AC for now
HGB 8.5. hgb has been stable and hasnt required anymore blood transfusion. Spoke with surgery and patient is okay to be discharged. Patient to have repeat CBC next week with primary care provider. Patient already told her navy material inspector that she
does not want to start back Xarelto.
s/p Prothrombin Complex Concentrate (Kcentra)
S/p Two units of RBCs
Appreciate surgery input
Mild hyponatremia
resolved
# Acute blood loss anemia due to hematoma from Xarelto
s/p 2 units of RBCs
Monitor hemoglobin
#Moderate gallbladder distention with cholelithiasis incidentally found no CT imaging
Abdominal pain around the rectal sheath area. No nausea or vomiting.
Continue with diet
# Paroxysmal atrial fibrillation
Rate is controlled and regular. She is in sinus rhythm. Per patient, her navy material inspector was considering stopping Xarelto due to intolerance
# Chronic heart failure with a preserved ejection fraction
Not in acute failure.
#Primary hypertension. Holding amlodipine due to low blood pressure on arrival, will resume when blood pressure stabilizes.
# Hyponatremia, mild. No confusion
#Hypercholesterolemia, no changes intended
# Hypothyroidism
-Synthroid
# Mild thrombocytopenia. Drop in platelet count likely due to bleeding episode. Monitor platelet level.
#Systemic lupus, rheumatoid arthritis,
-continue CellCept (Mycophenolate Mofetil)
# Acute kidney injury
Resolved
History of recent renal biopsy
-Moderate chronic bilateral renal disease on CT
# Impaired vision
#Diverticulosis with sigmoid perforation 2017)
-Severe colonic diverticulosis on CT noted, no GI bleeding at this time
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
DVT proph-PCDs
Full Code
Anticipated Discharge: Today
Subjective/Interval History
-
Date of Service: January 09, 2024
mild pain but better
Objective Data
-
Labs:
Laboratory Results
01/09/24
05:37
WBC 3.9 L
Hgb 8.5 L
Hct 25.9 L
Plt Count 169
Sodium 136
Potassium 4.2
Chloride 108 H
Carbon Dioxide 21 L
BUN 21 H
Creatinine 0.9
Glucose 94
Calcium 8.5
Vital Signs:
Vital Signs
Temp Pulse Resp BP Pulse Ox
98 F 68 11 147/69 100
01/09/24 07:44 01/09/24 08:00 01/09/24 08:00 01/09/24 08:00 01/09/24 08:21
I&O
01/08/24 01/09/24 01/10/24
06:59 06:59 06:59
Intake Total 410 / 410
Balance 410 / 410
--- NOTE | 2024-01-09 12:04 | W.DCSUMMARY ---
Discharge Summary
Discharge Data
Date of Admission: 01/06/24
Date of Discharge: 01/09/24
-
Pending Results: No
Hospital Course
68-year-old female with past medical history of CHF, essential hypertension, hyperlipidemia, hyponatremia, hypothyroidism, thrombocytopenia, lupus, rheumatoid arthritis, diverticulosis, hepatic cirrhosis, degenerative disease, paroxysmal atrial
fibrillation came to the hospital with acute large right anterior abdominal wall rectus sheath hematoma likely exacerbated by use of Xarelto. Patient Xarelto was held throughout hospitalization. Initially patient required blood transfusion along
with Kcluan. Patient was seen by surgery throughout hospitalization. Over time her bleeding continue to improve and her hemoglobin drop slowed down. Her discharge hemoglobin was 8.5. Patient was instructed to get repeat CBC done next week with
primary care provider. Patient decided not to be started back on her Xarelto. On discharge patient instructed to continue to hold Xarelto and to discuss with cardiology further. Once patient symptoms and pain continue to improve, patient was
discharged home with instructions to follow-up with all her physicians outpatient.
Discharge Plan
-
Patient Disposition: Home (Routine Discharge)
Discharge Diagnosis/Procedures: Acute right anterior abdominal wall rectus sheath hematoma exacerbated by Xarelto
Acute blood loss anemia due to hematoma from Xarelto
Diet: As tolerated
Activity: As tolerated
Driving Restrictions: As prior to admission
Bathing Restrictions: None
Blood Work: Repeat CBC next week with primary care provider
Activity Restrictions/Additional Instructions:
Please follow-up with your casino accountant regarding anticoagulation. Continue to hold Xarelto until speak with cardiology
Referrals:
Carlo Beaver MD [Family Provider] - in less than 1 week
Prescriptions:
New
acetaminophen [Tylenol Extra Strength] 500 mg Tablet
1,000 mg PO TID Qty: 0 0RF
oxycodone 5 mg Tablet
5 mg PO Q4HPRN PRN (Reason: moderate to severe pain) Qty: 10 0RF
Continued
biotin 1 MG capsule
1 mg PO DAILY
folic acid 0.4 MG tablet
0.8 mg PO DAILY
levothyroxine [Levoxyl] 25 MCG tablet
25 mcg PO DAILY
ezetimibe 10 MG tablet
10 mg PO DAILY
potassium gluconate 90 MG tablet
90 mg PO DAILY
cyanocobalamin (vitamin B-12) 1,000 mcg Tablet
1,000 mcg PO DAILY
metoprolol succinate [Toprol XL] 100 mg Tablet Extended Release 24 Hr
100 mg PO BID
Rx Instructions:
with meals
amlodipine 5 mg tablet
5 mg PO DAILY
Prolia 60 mg/mL Syringe
60 mg SC [id number] Qty: 0 0RF
Repatha Syringe 140 mg/mL Syringe
140 mg SC Q2W Qty: 0 0RF
mycophenolate mofetil 250 mg capsule
500 mg PO BID
Held
Xarelto 20 MG tablet
20 mg PO QPM
Hold Instructions: Until speak with cardiology
Discharge Orders:
Discharge Patient (As Directed); Ordered 01/09/24
Ordered By: Paxton Pulido
Care Plan Goals
Care Plan Goals:
Follow up and Discuss anticoagulation plan with [employer] as outpatient within 24 hours
Discharge Date and Time
Discharge Date/Time: 01/09/24 14:27
Print Language: SOUTH AFRICAN
--- NOTE | 2024-01-09 12:22 | CM ---
Patient seen bedside.
Denies home care needs.
Spouse will transport.
IMM completed.
Plan: home no needs.
--- NOTE | 2024-01-09 14:07 | PTCARENOTE ---
Assumed care of patient approx mid morning. Pt is alert and oriented x3, reports mild tenderness to rt upper and lower quadrant. Bowel tones present x 4. Pt tolerating diet without problems.There is NO visible bruising noted on NSR -SB on
telemetry. Ambulates with rolling walker in room. Pt reports she has a cane and walker at home but does not use either consistently Room air with pulse ox >95%. Pt ready for discharge and verbalizes understanding that she will not be resuming her
Xarelto until discussed with her primary Grinder Hardboard (who is not affiliated with ). Pt has an appointment in 2 weeks but has contacted the hot plate plywood press offbearer via phone and will follow up in 24 hours via phone. Pt verbalizes understanding of discharge
plan and follow up plan. here for transporting pt to home.
== END 2024-01-09 14:27 | disposition home or self-care (01) | DRG 813 ==
LOC: IMU 15:16
PROVIDERS: Internal Medicine; Physician Assistant; ADMITTING PHYSICIAN Internal Medicine; ATTENDING PHYSICIAN Internal Medicine; CONSULT PHYSICIAN Surgery; EMERGENCY PHYSICIAN Emergency Medicine; FAMILY PHYSICIAN Family Medicine
PROC: 30283B1 Transfusion of Nonautologous 4-Factor Prothrombin Complex Concentrate into Vein, Percutaneous Approach (ICD-10-PCS; 2024-01-06)
PROC: 30233N1 Transfusion of Nonautologous Red Blood Cells into Peripheral Vein, Percutaneous Approach (ICD-10-PCS; 2024-01-06)
DX: D68.32 Hemorrhagic disorder due to extrinsic circulating anticoagulants (principal); R57.8 Other shock; D62 Acute posthemorrhagic anemia; I13.0 Hypertensive heart and chronic kidney disease with heart failure and stage 1 through stage 4 chronic kidney disease, or unspecified chronic kidney disease; I50.32 Chronic diastolic (congestive) heart failure; N17.9 Acute kidney failure, unspecified; E87.1 Hypo-osmolality and hyponatremia; D69.6 Thrombocytopenia, unspecified; K74.60 Unspecified cirrhosis of liver; M32.9 Systemic lupus erythematosus, unspecified; E03.9 Hypothyroidism, unspecified; M06.9 Rheumatoid arthritis, unspecified; N18.9 Chronic kidney disease, unspecified; I95.9 Hypotension, unspecified; M79.81 Nontraumatic hematoma of soft tissue; T45.515A Adverse effect of anticoagulants, initial encounter; E78.00 Pure hypercholesterolemia, unspecified; H54.7 Unspecified visual loss; I48.0 Paroxysmal atrial fibrillation; K57.30 Diverticulosis of large intestine without perforation or abscess without bleeding; K80.20 Calculus of gallbladder without cholecystitis without obstruction; K82.8 Other specified diseases of gallbladder; M51.37 Other intervertebral disc degeneration, lumbosacral region; Z96.642 Presence of left artificial hip joint; Z96.651 Presence of right artificial knee joint; Z79.01 Long term (current) use of anticoagulants; Z79.624 Long term (current) use of inhibitors of nucleotide synthesis; Z79.890 Hormone replacement therapy; Z79.899 Other long term (current) drug therapy; Z87.19 Personal history of other diseases of the digestive system; Z90.49 Acquired absence of other specified parts of digestive tract; Z86.19 Personal history of other infectious and parasitic diseases; Z88.8 Allergy status to other drugs, medicaments and biological substances
CPT/HCPCS: 36430; 74177; 80048; 80053; 83690; 83735; 85014; 85018; 85025; 85027; 85610; 86803; 86850; 86900; 86901; 86920; 93005; 96361; 96374; 96375; 97162; 97165; 97530; 99291; 99292; J7168; P9016; Q9967

== ENCOUNTER 2024-06-28 12:21 | Emergency (ER) | payer SELFPAY ==
[2024-06-28 12:22] VITALS: BP 176/83
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
[2024-06-28] MEDS: KEFLEX 500 MG PO (14:52)
[2024-06-28] MEDS: ADACEL 0.5 ML IM (14:52)
== END 2024-06-28 15:32 | disposition home or self-care (01) ==
LOC: EMR 12:21
PROVIDERS: EMERGENCY PHYSICIAN Emergency Medicine; FAMILY PHYSICIAN Family Medicine
DX: S81.812A Laceration without foreign body, left lower leg, initial encounter (principal); V49.40XA Driver injured in collision with unspecified motor vehicles in traffic accident, initial encounter; Y92.410 Unspecified street and highway as the place of occurrence of the external cause; Z23 Encounter for immunization; I48.91 Unspecified atrial fibrillation; I11.0 Hypertensive heart disease with heart failure; I50.9 Heart failure, unspecified; E78.00 Pure hypercholesterolemia, unspecified; E03.9 Hypothyroidism, unspecified; M06.9 Rheumatoid arthritis, unspecified; M32.9 Systemic lupus erythematosus, unspecified; Z93.3 Colostomy status; Z98.51 Tubal ligation status
CPT/HCPCS: 99283; 12004; 90471; 71046; 90715

== ENCOUNTER 2025-03-05 05:45 | Inpatient (IN) | payer MEDICARE, BC, SELFPAY ==
--- NOTE | 2025-01-28 10:09 | CM ---
CM spoke with patient. Patient stated that she is currently at another doctor's appointment and is unable to speak. Cm will await return call.
[2025-02-14 11:13] LABS: Hematocrit 29.9 % (37.0-47.0); Hemoglobin 9.9 g/dL (12.0-16.0); Mean Corp Hgb Conc. 33.1 g/dL (33.0-37.0); Mean Corpuscular Volume 95.2 fL (81.0-99.0); Platelet Count 272 10^3/uL (130-400); Red Cell Dist. Width 12.0 % (11.5-14.5)
[2025-02-14 11:38] LABS: ALT (SGPT) 12 U/L (0-35); AST (SGOT) 24 U/L (14-36); Albumin 4.2 g/dl (3.5-5.0); Alkaline Phosphatase 94 U/L (38-126); Blood Urea Nitrogen 25 mg/dl (7-17); Calcium 9.2 mg/dl (8.4-10.2); Carbon Dioxide 16 mmol/L (22-30); Chloride 108 mmol/L (98-107); Glucose 89 mg/dl (70-99); Potassium 5.1 mmol/L (3.5-5.1); Sodium 134 mmol/L (135-145); Total Protein 7.1 g/dl (6.3-8.2); eGFR 54.06
[2025-02-14 12:09] LABS: Glycohemoglobin (HgbA1c) 5.0 % (4.0-5.6)
[2025-02-14 14:01] VITALS: BMI 20.6
[2025-02-14 14:15] VITALS: BMI 20.6
--- NOTE | 2025-02-19 10:52 | VNURNOTE ---
Patient is scheduled for an elective L TKA on 03/05 - per time of call, she is a same day patient with Dr Crystal. Spoke with patient prior to surgery. Introduced role of VN Liaison. Patient reports that she lives with her spouse in a split level
home.
Bathroom and bedroom on the second level. The patient has a cane and rolling walker.
She stated she has had 3 other orthopedic surgeries and has stayed over after each of them.
PCP is Dr Beaver
Discussed post surgical plans. The patient stated she is expecting to stay overnight after this surgery.
Ortho project scheduler YAS Ervin, surg. coordinator Angela Arellano notified.
Patient confirmed that her spouse will be home with her. She requested resources for a new car driver to be w/her at home for 8 hours while her spouse is away one day. Emailed her list of Homemaker/Companions. She agrees to call a few agencies to
inquire about services. Emailed to [email or web address].
No referral placed, pt declined VN, home PT. She stated she will [facility].
Plan: Outpt PT 03/10
[2025-03-05] VITALS (24 sets, daily range): BP systolic 86–149; BP diastolic 45–75; PULSE 70; BMI 20.6; BMI 21.2
[2025-03-05] MEDS: CELEBREX 200 MG PO (06:28)
[2025-03-05] MEDS: TYLENOL 650 MG PO ×3 (06:28→21:51)
[2025-03-05] MEDS: NORMOSOL-R/PLASMALYTE-A 1000 IV (06:29)
[2025-03-05] MEDS: NSS 1000 IV (08:51)
--- NOTE | 2025-03-05 09:40 | W.PN.UPDATE ---
Update Note
Progress Note Update
L knee OA s/p L TKA w/ Dr Crystal 03/05/25
- s/p L MARLEN, 1994, R TKA, 2016, and R MARLEN, 2022, at an outside facility
DVT prophylaxis - ASA 81 mg PO BID, b/l venous foot pumps
HTN - + parameters - monitor BP
PAF/a flutter, status post atrial flutter ablation 2015
PACs and PVCs, asymptomatic
Right bundle branch block
- Monitor on tele
- No current OAC due to rectal bleed from abdominal rectus sheath hematoma 01/2024; thankfully, maintaining NSR as of recently
CHFpEF - reduce hourly IVF rate to prevent fluid overload
- Monitor daily weight, I&Os
- Low sodium diet
Chronic kidney disease stage 3 - minimize nephrotoxins
Hiatal hernia - add daily Protonix
Mild hepatic cirrhosis per recent imaging - reduce max dose of Tylenol daily
Chronic idiopathic demyelinating polyneuropathy - add Gabapentin HS
- Consider Lyrica if Gabapentin ineffective
Systemic lupus erythematous with associated scleroderma, on CellCept - held Cellcept 1 week pre-op
- Hold Cellcept 3 weeks post-surgery per Rheum as incision is healing
- Would benefit from Cefadroxil upon d/c
Anemia of chronic disease - H&H in AM
Mild bilateral carotid artery stenosis
Dilated aortic root
Pericarditis 2012
Remote, recurrent pleurisy
Diverticulitis with sigmoid perforation, 2018, status post colostomy and subsequent reversal
Cholelithiasis, asymptomatic
Essential tremor
Lumbosacral degenerative disc disease
Rheumatoid arthritis
Sjogren's syndrome
Raynaud's disease
Hypothyroidism
Osteoporosis
Recent UTI, improved with Bactrim
Mild leukopenia
Chronic hyponatremia
History of hypokalemia, on oral supplementation
[2025-03-05] MEDS: ROXICODONE 5 MG PO (10:36)
[2025-03-05] MEDS: TOPROL XL PO (11:18)
--- NOTE | 2025-03-05 11:38 | PTCARENOTE ---
Pt arrived to [address] [facility] at 1040 s/p L TKA. Left knee dressing with small sanguineous drainage. Ice applied to left knee. 97% on RA. Admission questions answered. Bed locked and in lowest position. Care ongoing.
[2025-03-05] MEDS: FOLVITE 0.4 MG PO (11:40)
[2025-03-05] MEDS: SYNTHROID 25 MCG PO (11:40)
[2025-03-05] MEDS: PROTONIX 40 MG PO (11:40)
[2025-03-05] MEDS: ROXICODONE 10 MG PO ×3 (12:02→22:40)
[2025-03-05] MEDS: ANCEF 5 IV ×2 (13:17→21:50)
[2025-03-05] MEDS: ZOFRAN 4 MG IV (14:42)
[2025-03-05] MEDS: COLACE PO (19:30)
[2025-03-05] MEDS: SENOKOT PO (19:30)
[2025-03-05] MEDS: BACTROBAN 2% OINTMENT 1 APPLIC NASAL (19:32)
[2025-03-05] MEDS: TOPROL XL 50 MG PO (19:33)
[2025-03-05] MEDS: LOW STRENGTH ASPIRIN 81 MG PO (19:33)
[2025-03-05] MEDS: DECADRON 4 MG PO (19:33)
[2025-03-05] MEDS: NEURONTIN 300 MG PO (21:50)
--- NOTE | 2025-03-06 00:12 | PTCARENOTE ---
Pt's oral temp was 94.5. Checked rectal temp, was 95.5. Obtained order for charlene yeager - applied at 0000. Care ongoing.
[2025-03-06 03:00] VITALS: BP 120/69
[2025-03-06] MEDS: SYNTHROID 25 MCG PO (05:27)
[2025-03-06 06:00] VITALS: BMI 20.9
[2025-03-06 06:45] LABS: Hematocrit 23.8 % (37.0-47.0); Hemoglobin 8.0 g/dL (12.0-16.0)
[2025-03-06 07:05] VITALS: BP 126/61
[2025-03-06] MEDS: BACTROBAN 2% OINTMENT 1 APPLIC NASAL (07:46)
[2025-03-06] MEDS: SENOKOT 17.2 MG PO (07:47)
[2025-03-06] MEDS: DECADRON 4 MG PO (07:47)
[2025-03-06] MEDS: TOPROL XL 50 MG PO (07:47)
[2025-03-06] MEDS: TYLENOL 650 MG PO (07:47)
[2025-03-06] MEDS: PROTONIX 40 MG PO (07:47)
[2025-03-06] MEDS: COLACE 100 MG PO (07:47)
[2025-03-06] MEDS: FOLVITE 0.4 MG PO (07:47)
[2025-03-06] MEDS: LOW STRENGTH ASPIRIN 81 MG PO (07:48)
[2025-03-06] MEDS: ROXICODONE 10 MG PO (08:01)
[2025-03-06 09:16] VITALS: BP 128/62; BP 135/58; PULSE 65; O2SAT 97
--- NOTE | 2025-03-06 09:16 | W.PN.ORTHO ---
Today's Communication / Plan
-
Await PT and OT recs.
D/c later today if remaining clinically stable.
Assessment
.
Distal Motor Intact: Yes
Dressing:
Moderate amount of old incisional bleeding noted - dressing changed and now C/D/I.
Assessment:
L knee OA s/p L TKA w/ Dr Crystal 03/05/25
- s/p L MARLEN, 1994, R TKA, 2016, and R MARLEN, 2022, at an outside facility
DVT prophylaxis - ASA 81 mg PO BID, b/l venous foot pumps
HTN - + parameters - BPs overall stable
PAF/a flutter, status post atrial flutter ablation 2015
PACs and PVCs, asymptomatic
Right bundle branch block
- Maintaining NSR w/ PVCs/RBBB on tele
- No current OAC due to rectal bleed from abdominal rectus sheath hematoma 01/2024; thankfully, maintaining NSR as of recently
CHFpEF - reduced hourly IVF rate to prevent fluid overload
- Daily weight, I&Os stable
- Low sodium diet
Chronic kidney disease stage 3 - minimize nephrotoxins
Hiatal hernia - added daily Protonix
Mild hepatic cirrhosis per recent imaging - reduced max dose of Tylenol daily
Chronic idiopathic demyelinating polyneuropathy - continue added Gabapentin HS
- Consider Lyrica if Gabapentin ineffective
Systemic lupus erythematous with associated scleroderma, on CellCept - held Cellcept 1 week pre-op
- Hold Cellcept 3 weeks post-surgery per Rheum as incision is healing
- Would benefit from Cefadroxil upon d/c
Anemia of chronic disease - Hgb 8.0 POD 1 - pt's baseline hgb typically falls between 8-10 range
- Result also likely higher given hemodilution from IVF overnight
- Did discuss increased dietary sources of iron (red meat, leafy greens, total cereal)
- Of note, pt asymptomatic and hemodynamically stable
- Prefer not to transfuse unless low 7s, unstable status
- Will repeat CBC outpatient w/ results to PCP for further anemia management
Mild bilateral carotid artery stenosis
Dilated aortic root
Pericarditis 2012
Remote, recurrent pleurisy
Diverticulitis with sigmoid perforation, 2018, status post colostomy and subsequent reversal
Cholelithiasis, asymptomatic
Essential tremor
Lumbosacral degenerative disc disease
Rheumatoid arthritis
Sjogren's syndrome
Raynaud's disease
Hypothyroidism
Osteoporosis
Recent UTI, improved with Bactrim
Mild leukopenia
Chronic hyponatremia
History of hypokalemia, on oral supplementation
Plan
.
Surgery / Date: Lalo ANG w/ Dr Crystal 03/05/25
DVT Prophylaxis: Aspirin (81 mg PO BID )
Activity:
Out of bed.
PT/OT
Discharge Plan: Home w/ Outpatient PT
Subjective
.
.:
Patient resting comfortably in her bed.
L knee pain tolerable with current pain meds.
Denies any new significant complaints.
Eager for potential d/c today.
Vital Signs and Labs
.
Vital Signs and Labs:
Lab Results
03/06/25 05:29
02/14/25 10:57
Temp Pulse Resp BP Pulse Ox
97.9 F 64 16 126/61 97
03/06/25 07:05 03/06/25 07:47 03/06/25 07:05 03/06/25 07:47 03/06/25 07:05
Non-invasive Hgb result: 10.5
Physical Exam
-
HEENT: No pallor, cyanosis, or jaundice. Throat clear.
NECK: Supple. No JVD.
RESPIRATORY: Lungs clear to auscultation.
CVS: S1, S2 normal. RRR.�
ABDOMEN: Soft, non-tender. No distension.
EXTREMITIES: Strength equal, no calf pain with palpation/dorsiflexion. Calves soft.
TAX ASSESSOR: AOx3. No focal deficits. electrician marine grossly intact
--- NOTE | 2025-03-06 09:27 | CM ---
Cm met with patient in room. IMM given.
PLAN: home with outpatient PT, and spouse support.
--- NOTE | 2025-03-06 09:34 | W.DS.TRANS ---
DC Summary - Checkroom Chief
-
Discharge Instructions:
Sleep Apnea Risk Low
Discharge Diagnosis/Procedures L knee OA s/p L TKA w/ Dr Crystal 03/05/25
Diet Low Sodium,Other diet
Additional Diets Diabetic carb controlled diet x1 week for wound
healing/infection prevention. Increase dietary
iron to help anemia.
Adequate hydration, minimize opioids, and wear
TEDs stockings to prevent low blood pressure/
dizziness.
Activity As tolerated,With Walker
Driving Restrictions Not until seen by your Dr
Bathing Restrictions OK to Shower
Blood Work CBC without diff (ATTN: HEMOGLOBIN) on
, with results to primary care physician.
Other Services PT
Wound Care Dressing to be removed 1 week post-surgery.
[place] to be removed at 2 week follow-up with
surgeon's office.
Specialty Instructions Weigh Daily
Instructions:
Stand-Alone Forms: Total Hip/Knee Replacement D/C
Changes to Home Medications: Yes
Discharge Medications:
DC Medications w/original date entered in [facility]
biotin 1 mg capsule 1 mg PO DAILY Supplement 04/03/16
folic acid 400 mcg tablet 0.4 mg PO DAILY Supplement 08/09/17
levothyroxine 25 mcg tablet (Levoxyl) 25 mcg PO DAILY Thyroid 08/09/17
potassium gluconate 550 mg (90 mg) tablet 550 mg PO DAILY Supplement 08/09/17
denosumab 60 mg/mL subcutaneous syringe (Prolia) 60 mg SC [id number] bone #0 mL 12/30/23
evolocumab 140 mg/mL subcutaneous syringe (Repatha Syringe) 140 mg SC Q2W High cholesterol #0 mL 12/30/23
mycophenolate mofetil 250 mg capsule 750 mg PO DAILY 01/06/24
Held on 03/06/25. Instructions: Resume on 03/26/25. HOLD FOR 3 WEEKS POST-SURGERY; HOWEVER, PLEASE DISCUSS WITH SURGEON PRIOR TO RESUMING.
alpha lipoic acid 600 mg tablet 600 mg PO DAILY 02/13/25
metoprolol succinate 50 mg tablet,extended release 24 hr 50 mg PO BID 02/13/25
mycophenolate mofetil 250 mg capsule 500 mg PO HS 02/13/25
Held on 03/06/25. Instructions: Resume on 03/26/25. HOLD FOR 3 WEEKS POST-SURGERY; HOWEVER, PLEASE DISCUSS WITH SURGEON PRIOR TO RESUMING.
vitamin B complex 1 tab PO DAILY 02/13/25
mupirocin 2 % topical ointment 1 applic intranasal BID #1 tube 02/14/25
Saccharomyces boulardii 250 mg capsule (Florastor) 250 mg PO DAILY #7 caps 03/06/25
acetaminophen 500 mg tablet (Tylenol Extra Strength) 500 mg PO Q6H #60 tabs 03/06/25
amlodipine 5 mg tablet 2.5 mg (1/2 x 5 mg) PO HS #1 tab 03/06/25
amlodipine 5 mg tablet 5 mg PO DAILY Blood pressure #1 tab 03/06/25
aspirin 81 mg chewable tablet 81 mg PO BID #60 tabs 03/06/25
cefadroxil 500 mg capsule 500 mg PO DAILY #7 caps 03/06/25
dexamethasone 4 mg tablet 4 mg PO BID Anti-inflammatory #5 tabs 03/06/25
docusate sodium 100 mg capsule 100 mg PO BID #30 caps 03/06/25
gabapentin 300 mg capsule 300 mg PO HS neuropathic pain/sleep #10 caps 03/06/25
ondansetron HCl 4 mg tablet 4 mg PO Q6H PRN nausea and vomiting #30 tabs 03/06/25
oxycodone 5 mg tablet 5 - 10 mg (1 - 2 x 5 mg) PO Q6H PRN moderate-severe pain #30 tabs 03/06/25
pantoprazole 40 mg tablet,delayed release 40 mg PO DAILY #30 tabs 03/06/25
sennosides 8.6 mg tablet (Rachna-lenard) 17.2 mg (2 x 8.6 mg) PO BID #30 tabs 03/06/25
Home Medication Changes
Saccharomyces boulardii 250 mg capsule (Florastor) 250 mg PO DAILY #7 caps 03/06/25
acetaminophen 500 mg tablet (Tylenol Extra Strength) 500 mg PO Q6H #60 tabs 03/06/25
aspirin 81 mg chewable tablet 81 mg PO BID #60 tabs 03/06/25
cefadroxil 500 mg capsule 500 mg PO DAILY #7 caps 03/06/25
dexamethasone 4 mg tablet 4 mg PO BID Anti-inflammatory #5 tabs 03/06/25
docusate sodium 100 mg capsule 100 mg PO BID #30 caps 03/06/25
gabapentin 300 mg capsule 300 mg PO HS neuropathic pain/sleep #10 caps 03/06/25
ondansetron HCl 4 mg tablet 4 mg PO Q6H PRN nausea and vomiting #30 tabs 03/06/25
oxycodone 5 mg tablet 5 - 10 mg (1 - 2 x 5 mg) PO Q6H PRN moderate-severe pain #30 tabs 03/06/25
pantoprazole 40 mg tablet,delayed release 40 mg PO DAILY #30 tabs 03/06/25
sennosides 8.6 mg tablet (Rachna-lenard) 17.2 mg (2 x 8.6 mg) PO BID #30 tabs 03/06/25
Pending Results: No
[2025-03-06 09:54] VITALS: BP 119/60; PULSE 64
[2025-03-06 10:55] VITALS: BP 120/58
--- NOTE | 2025-03-06 11:24 | W.PN.UPDATE ---
Update Note
Progress Note Update
Prior to d/c, the patient was noted to have an increased amount of incisional bleeding.
Incisional bleeding was noted after therapy sessions this AM.
I assessed her incision earlier with her initial dressing change. He bisi were well approximated and all intact.
There were no visible signs of active bleeding at that point in time.
The patient is likely having bleeding due to thin skin from years of chronic steroid use for her inflammatory conditions.
We will change her dressing and apply a pressure wrap consisting of ABD pads and an GLADIS wrap.
TXA will be given as well to slow bleeding.
It was recommended that the patient stay a little longer for further monitoring; however, she is adamant about leaving now. She is otherwise medically stable.
I did advise she watch her incisional bleeding closely, especially with her anemia.
She is aware to contact her surgeon's office should bleeding continue/worsen.
Surgeon made aware of my recommendations prior to d/c.
[2025-03-06] MEDS: CYKLOKAPRON 1300 MG PO (11:31)
--- NOTE | 2025-03-06 12:51 | PTCARENOTE ---
Pt with increased drainage on Left knee dressing after working with PT. Chayo Garnett, notified. Chayo ordered TXA and advised that the pt should stay longer so that we can observe bleeding. Pt adamant about going home. Chayo aware and advised
to change dressing and put abd pads with an phillip for compression. Pt waited for 45 minutes after phillip was placed on knee. This RN assessed left knee compression phillip wrap. Small drainage noted. Pt advised to call orthopedics office if drainage does not
decrease by end of the day or if it bleeds through. Pt aware and compliant with this plan. Bill Domingo aware. Care ongoing.
== END 2025-03-06 13:09 | disposition home or self-care (01) | DRG 470 ==
LOC: 2 SOUTH 05:45
PROVIDERS: Physician Assistant; ADMITTING PHYSICIAN Orthopaedic Surgery; FAMILY PHYSICIAN Family Medicine; REFERRING PHYSICIAN Internal Medicine Cardiovascular Disease
PROC: 0SRD0J9 Replacement of Left Knee Joint with Synthetic Substitute, Cemented, Open Approach (ICD-10-PCS; 2025-03-05)
DX: M17.12 Unilateral primary osteoarthritis, left knee (principal); I13.0 Hypertensive heart and chronic kidney disease with heart failure and stage 1 through stage 4 chronic kidney disease, or unspecified chronic kidney disease; I50.32 Chronic diastolic (congestive) heart failure; E87.1 Hypo-osmolality and hyponatremia; I48.92 Unspecified atrial flutter; G61.81 Chronic inflammatory demyelinating polyneuritis; N18.30 Chronic kidney disease, stage 3 unspecified; M32.9 Systemic lupus erythematosus, unspecified; M34.9 Systemic sclerosis, unspecified; I65.23 Occlusion and stenosis of bilateral carotid arteries; I48.0 Paroxysmal atrial fibrillation; I45.10 Unspecified right bundle-branch block; G25.0 Essential tremor; M51.379 Other intervertebral disc degeneration, lumbosacral region without mention of lumbar back pain or lower extremity pain; M06.9 Rheumatoid arthritis, unspecified; M35.00 Sjogren syndrome, unspecified; I73.00 Raynaud's syndrome without gangrene; E03.9 Hypothyroidism, unspecified; E87.6 Hypokalemia; D63.1 Anemia in chronic kidney disease; I49.1 Atrial premature depolarization; I49.3 Ventricular premature depolarization; K74.60 Unspecified cirrhosis of liver; I77.810 Thoracic aortic ectasia; M81.0 Age-related osteoporosis without current pathological fracture; D72.819 Decreased white blood cell count, unspecified; Z96.643 Presence of artificial hip joint, bilateral; Z96.651 Presence of right artificial knee joint; Z79.52 Long term (current) use of systemic steroids
CPT/HCPCS: 36415; 73560; 80053; 83036; 85014; 85018; 85027; 86850; 86900; 86901; 87070; 97116; 97162; 97166; 97535; C1713; C1776